=== PATIENT | male | born 1980 | race African-American/Black ===

== ENCOUNTER 2020-08-08 08:36 | Outpatient (REF) | payer BC, SELFPAY | END 2020-08-08 08:37 | disposition home or self-care (01) | LOC: HO.LAB 08:36 | PROVIDERS: Visit Provider Internal Medicine | DX: Z20.828 Contact with and (suspected) exposure to other viral communicable diseases (principal) | CPT/HCPCS: 87635 ==

== ENCOUNTER 2020-09-10 06:23 | Outpatient (REF) | payer BC, SELFPAY | END 2020-09-10 06:24 | disposition home or self-care (01) | LOC: HO.LAB 06:23 | PROVIDERS: Visit Provider Internal Medicine | DX: Z20.828 Contact with and (suspected) exposure to other viral communicable diseases (principal) | CPT/HCPCS: C9803; U0003 ==

== ENCOUNTER 2021-01-30 12:41 | Outpatient (REF) | payer OTHER, SELFPAY | END 2021-01-30 12:42 | disposition home or self-care (01) | LOC: HO.LAB 12:41 | PROVIDERS: Visit Provider Internal Medicine | DX: Z20.822 Contact with and (suspected) exposure to COVID-19 (principal) | CPT/HCPCS: C9803; U0003; U0005 ==

== ENCOUNTER 2021-02-01 12:04 | Emergency (ER) | payer OTHER, SELFPAY ==
--- NOTE | ~2021-02-01 | XR_ITS ---
EXAMINATION: XR CHEST CLINICAL INFORMATION: Cough COMPARISON: None TECHNIQUE: Frontal view of the chest was obtained. FINDINGS: Normal symmetric lung volumes. No parenchymal consolidation. No pleural effusion. No pneumothorax. Cardiomediastinal silhouette and pulmonary vascularity are within normal limits. No acute osseous abnormalities. XR/XR chest 1V IMPRESSION: Unremarkable examination.
[2021-02-01 12:33] VITALS: BP 150/80; PULSE 80; RESP 16; TEMP 36.8; O2SAT 95; BMI 44.7
[2021-02-01 15:01] LABS: Influenza A PCR NEGATIVE (Negative); Influenza B PCR NEGATIVE (Negative); Resp Syncy Virus RNA Qual PCR NEGATIVE (Negative); SARS COV2 PCR INHOUSE NEGATIVE (Negative)
--- NOTE | 2021-02-01 15:48 | ED_ITS ---
HPI - URI/Sore Throat General Chief Complaint: Upper Respiratory Symptoms Stated Complaint: cough Time Seen by Provider: 02/01/21 13:35 Source: patient Mode of arrival: ambulatory Limitations: no limitations History of Present Illness HPI Narrative: Dry cough for the past 1 week had a COVID test 2 days ago ensure the results he does not recall any obvious sick contacts, no recent illness. He states this feels similar to last year when he had pneumonia. He otherwise denies any shortness of breath no fever. MD elicited complaint: cough Onset (ago): day(s) Consistency: intermittent Severity: moderate Able to tolerate fluids by mouth: Yes Exacerbating factors: nothing Relieving factors: nothing Associated symptoms: denies other symptoms Treatments prior to arrival: none Related Data Previous Rx's Medication Instructions Recorded cyclobenzaprine 10 mg tablet 10 mg PO TID PRN #15 tab 11/26/20 naproxen 500 mg tablet 500 mg PO BID PRN #60 tab 11/26/20 acetaminophen-DM [Robitussin 20 ml PO Q4H PRN #237 ml 02/01/21 Cough-Sore Throat] albuterol sulfate 2 puff INHALATION Q4-6H PRN #8.5 g 02/01/21 azithromycin [Zithromax Z-Mayur] See Rx Instructions .ROUTE 02/01/21 .COMPLEX #6 tab Allergies Allergy/AdvReac Type Severity Reaction Status Date / Time No Known Allergies Allergy Verified 02/01/21 12:35 [No Known Allergies*] Review of Systems Review of Systems: Constitutional: No Weight loss, No Fever, No Chills, No Night Sweats, No Fatigue, No Malaise ENT/Mouth: No Hearing loss, No Ear Pain, No Nasal Congestion, No Sinus Pain, No Hoarseness, No sore throat, No Rhinorrhea, No Swallowing Difficulty Eyes: No Eye Pain, No Swelling, No Redness, No Foreign Body, No Discharge, No Vision Changes Cardiovascular: No Chest Pain, No SOB, No Dyspnea on Exertion, No Orthopnea, No Edema, No Palpitations Respiratory: + Cough, No Sputum, No Wheezing, No Smoke Exposure, No Dyspnea Gastrointestinal: No Nausea, No Vomiting, No Diarrhea, No Constipation, No abdominal Pain, No Hematochezia, No Melena Genitourinary:No Dysuria, No Urinary Frequency, No Hematuria, No Urinary Incontinence, No Urgency, No Flank Pain, No Urinary Flow Changes Musculoskeletal: No joint pain, No Myalgias, No Joint Swelling Skin: No Skin Lesions, No rash Neuro: No Weakness, No Numbness, No Paresthesias, No Loss of Consciousness, No Dizziness, No Headache Psych: No Social Issues Heme/Lymph: No Bruising, No Bleeding,No Lymphadenopathy Endocrine: No Polyuria, No Polydipsia, No Temperature Intolerance Yes all other systems are reviewed and are negative REPLACED BY [facility] Past Medical History Medical History 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 Hypertension Family History Family History (Updated 01/17/21 @ 15:51 by KARL King) Father Lung cancer Mother Diabetes Social History Social History Advance Directives: No Advance Directives Information Provided: Yes Physical Exam Vital Signs: Vital Signs: Last Vital Signs Temp 98.2 F 02/01/21 12:33 Pulse 80 02/01/21 12:33 Resp 16 02/01/21 12:33 BP 150/80 H 02/01/21 12:33 Pulse Ox 95 02/01/21 12:33 Body Mass Index 44.7 Reviewed Const: General: cooperative and healthy appearing; No acute distress or intoxicated appearing Nutritional Appearance: average body habitus Orientation/consciousness: patient oriented x3 HENMT: Head: Yes normal to inspection Ears: hearing grossly normal bilaterally Eyes: General: appearance normal, both eyes and all related structures Visual Smith: normal visual smith by confrontation Neck: Neck: Yes normal visual inspection, No positive Brudzinski's sign, No positive Kernig's sign and No tender Thyroid: Thyroid normal Chest: Chest palpation & inspection: normal inspection of the chest Resp: Effort & Inspection: normal respiratory effort Auscultation: clear to auscultation bilaterally Cardio: Jugular venous distension: no JVD Rhythm: regular rhythm Heart sounds: S1 normal heart sound present and S2 normal heart sound present GI: Inspection: Yes normal to inspection Palpation (GI): Soft to palpation Percussion: Yes normal to percussion Auscultation: normal bowel sounds : General: Yes no CVA tenderness Back/Spine/Pelvis: Back: no CVA tenderness Skin: General skin exam: no rashes or lesions noted Neuro: General: patient oriented x3 Extrem: General: Yes normal to inspection Course Reevaluation(s) Reevaluation #1: SARs negative/RSV/flu negative, chest x-ray unremarkable. Overall nontoxic appearing. No complaint of chest pain or shortness of breath here. He medically stable pulse ox 100% not tachycardic afebrile. Will discharge home with precaution return follow-up instructions. Feels comfortable plan. Stable for discharge. MDM - URI/Sore Throat Differential Diagnosis Differential diagnosis: Likely upper respiratory infection Medical Records Attestation: I reviewed the patient's medical records. Lab Data Attestation: I reviewed the patient's lab results. 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 FINDINGS: Normal symmetric lung volumes. No parenchymal consolidation. No pleural effusion. No pneumothorax. Cardiomediastinal silhouette and pulmonary vascularity are within normal limits. No acute osseous abnormalities. XR/XR chest 1V IMPRESSION: Unremarkable examination. Dictated By:PÉREZ CASTRO MDSigned By:<Electronically signed by PÉREZ CASTRO MD in OV>02/01/21 1528 DD/ 1335TD/TT: Buffing Turner And Counter: BRIGIDA Discharge Plan Discharge Clinical Impression: Bronchitis Patient Disposition: Home, Self-Care Instructions: Acute Bronchitis (ED) Additional Instructions: Both her COVID test were negative from 2 days ago and today Your chest x-ray did not show any evidence of pneumonia Will start you on inhaler for your cough Also start taking the antibiotic Start taking the cough medicine Push fluids Self-isolation/social distancing Full course of her medications prescribed Return if any concerns or worsening symptoms Otherwise the neck freely to follow-up with her primary care doctor in the next 1-2 weeks Thank you Prescriptions: New azithromycin [Zithromax Z-Mayur] 250 mg tablet See Rx Instructions .ROUTE .COMPLEX Qty: 6 RF: 0 albuterol sulfate 90 mcg/actuation HFA aerosol inhaler 2 puff inhalation Q4-6H PRN (Reason: shortness of breath or wheezing) Qty: 8.5 RF: 0 Robitussin Cough-Sore Throat 325-10 mg/10 mL liquid 20 ml PO Q4H PRN (Reason: cold symptoms) Qty: 237 RF: 0 No Action cyclobenzaprine 10 mg tablet 10 mg PO TID PRN (Reason: muscle spasm) Qty: 15 RF: 0 naproxen 500 mg tablet 500 mg PO BID PRN (Reason: pain) Qty: 60 RF: 0 Referrals: Per García, [employer] ESTATE MANAGEMENT SPECIALIST-[facility] [Primary Care Provider] - 1 week
== END 2021-02-01 16:13 | disposition home or self-care (01) ==
PROVIDERS: Emergency Provider Emergency Medicine; PCP Nurse Practitioner Family
DX: J20.9 Acute bronchitis, unspecified (principal); Z20.822 Contact with and (suspected) exposure to COVID-19; I10 Essential (primary) hypertension
CPT/HCPCS: 0241U; 36415; 71045; 99283

== ENCOUNTER 2021-04-16 05:38 | Emergency (ER) | payer OTHER, SELFPAY ==
--- NOTE | ~2021-04-16 | XR_ITS ---
EXAMINATION: XR CHEST CLINICAL INFORMATION: Cough COMPARISON: 02/01/2021 TECHNIQUE: Frontal view of the chest was obtained. FINDINGS: The lungs are well expanded. There is no focal consolidation, edema, or effusion. No pneumothorax. The cardiomediastinal silhouette is within normal limits. No acute osseous abnormality. XR/XR chest 1V IMPRESSION: Clear lungs.
[2021-04-16 05:50] VITALS: BP 172/89; PULSE 71; RESP 20; TEMP 36.8; O2SAT 95; BMI 44.0
[2021-04-16 06:21] LABS: COVID-19 Test Negative (Negative); IDNOW Serial# 9DD0AD1C
[2021-04-16 06:29] VITALS: BP 169/91; PULSE 69; RESP 24; TEMP 36.7; O2SAT 94
--- NOTE | 2021-04-16 06:47 | ED.URI ---
HPI - URI/Sore Throat General Chief Complaint: Upper Respiratory Symptoms Stated Complaint: Cold symptoms Time Seen by Provider: 04/16/21 06:47 Source: patient Mode of arrival: ambulatory Limitations: no limitations History of Present Illness HPI Narrative: one week of cough and chills. Patient has not been vaccinated. MD elicited complaint: cough Pertinent past history: asthma Onset (ago): week(s) Consistency: intermittent Severity: mild Description of mucous: clear Able to tolerate fluids by mouth: Yes Exacerbating factors: nothing Associated symptoms: chills Related Data Previous Rx's Medication Instructions Recorded cyclobenzaprine 10 mg tablet 10 mg PO TID PRN #15 tab 11/26/20 naproxen 500 mg tablet 500 mg PO BID PRN #60 tab 11/26/20 acetaminophen-DM [Robitussin 20 ml PO Q4H PRN #237 ml 02/01/21 Cough-Sore Throat] albuterol sulfate 2 puff INHALATION Q4-6H PRN #8.5 g 02/01/21 azithromycin [Zithromax Z-Mayur] See Rx Instructions .ROUTE 02/01/21 .COMPLEX #6 tab albuterol sulfate 2 puff INHALATION Q4-6H PRN #8.5 g 04/16/21 prednisone 60 mg PO DAILY #12 tab 04/16/21 Allergies Allergy/AdvReac Type Severity Reaction Status Date / Time No Known Allergies Allergy Verified 02/01/21 12:35 [No Known Allergies*] Review of Systems Constitutional: Constitutional: Reports no additional constitutional complaints Eyes: Eyes: Reports no additional eye complaints ENT: Denies dizziness Cardiovascular: Cardiovascular: Reports no additional cardiovascular complaints Respiratory: Respiratory: Reports as per HPI Gastrointestinal: Gastrointestinal: Reports no additional gastrointestinal complaints Musculoskeletal: Musculoskeletal: Reports no additional musculoskeletal complaints Integumentary/Breasts: Skin/Breast: Denies rash Neurologic: Reports system reviewed and no additional complaints, except as documented, Denies dizziness and Denies Sensory deficit (Neuro) Psychiatric: Psychiatric: Denies anxiety [facility] Past Medical History Medical History 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 Hypertension Family History Family History Father Lung cancer Mother Diabetes Social History Social History Alcohol intake: current Alcohol intake frequency: holidays/special occasions only Patient Tobacco Use Status: Never used Tobacco Use of substances other than those prescribed or required for medical reasons: No Advance Directives: No Physical Exam Vital Signs: Vital Signs: Last Vital Signs Temp 98.0 F 04/16/21 06:29 Pulse 75 04/16/21 07:18 Resp 20 04/16/21 07:14 BP 146/80 H 04/16/21 07:14 Pulse Ox 96 04/16/21 07:14 Body Mass Index 44.0 Const: Other: resting comfortably Nutritional Appearance: obese Orientation/consciousness: oriented to person and patient oriented x3 Limitations: no limitations HENMT: Head: Yes normal to inspection Ears: external ears normal General nose exam: Normal external nose present Mouth: Normal oral and palatal mucosa present and oropharynx normal Throat: Yes posterior oropharynx normal Eyes: General: appearance normal, both eyes and all related structures Neck: Other: supple Neck: Yes normal visual inspection Chest: Chest palpation & inspection: normal inspection of the chest Resp: Other: slight wheeze Cardio: Jugular venous distension: no JVD Rate: regular rate Rhythm: regular rhythm Heart sounds: S1 normal heart sound present and S2 normal heart sound present GI: Inspection: Yes normal to inspection Palpation (GI): Soft to palpation, nontender and No hepatosplenomegaly present Auscultation: normal bowel sounds : General: Yes no CVA tenderness Back/Spine/Pelvis: Back: no CVA tenderness Skin: General skin exam: no rashes or lesions noted Neuro: General: oriented to person and patient oriented x3 Cranial nerves: Yes CN's II-XII intact bilaterally Motor exam (neuro): 5/5 motor strength present throughout Sensory Exam: No Sensory deficit (Neuro) Extrem: General: Yes normal to inspection Psych: Appearance: grossly normal Course Course Course Narrative: patient COVID negative, xray normal with stable vitals. Patient with slight wheeze which will be treated with a pump and prednisone. I am still concerned about covid despite negative test. MDM - URI/Sore Throat Lab Data Labs: Lab Results 04/16/21 Range/Units 05:59 COVID-19 (DOMINIC) Negative (Negative) COVID-19 Clin Com See Note Discharge Plan Discharge Clinical Impression: COVID Upper respiratory infection Qualifiers: URI type: unspecified viral URI Qualified Code(s): J06.9 - Acute upper respiratory infection, unspecified Patient Disposition: Home, Self-Care Instructions: COVID-19 (Coronavirus Disease 2019) (ED), Upper Respiratory Infection (ED) Additional Instructions: you must assume you might have COVID, stay out of work for 10 days. you must get vaccinated Prescriptions: New albuterol sulfate 90 mcg/actuation HFA aerosol inhaler 2 puff inhalation Q4-6H PRN (Reason: shortness of breath or wheezing) Qty: 8.5 RF: 0 prednisone 20 mg tablet 60 mg PO DAILY Qty: 12 RF: 0 No Action azithromycin [Zithromax Z-Mayur] 250 mg tablet See Rx Instructions .ROUTE .COMPLEX Qty: 6 RF: 0 albuterol sulfate 90 mcg/actuation HFA aerosol inhaler 2 puff inhalation Q4-6H PRN (Reason: shortness of breath or wheezing) Qty: 8.5 RF: 0 Robitussin Cough-Sore Throat 325-10 mg/10 mL liquid 20 ml PO Q4H PRN (Reason: cold symptoms) Qty: 237 RF: 0 cyclobenzaprine 10 mg tablet 10 mg PO TID PRN (Reason: muscle spasm) Qty: 15 RF: 0 naproxen 500 mg tablet 500 mg PO BID PRN (Reason: pain) Qty: 60 RF: 0 Referrals: Physician,Unknown [Primary Care Provider] - 3 days
[2021-04-16 06:50] VITALS: BP 185/103; PULSE 71; RESP 20
[2021-04-16] MEDS: predniSONE 20 MG TABLET 60 MG PO (07:12)
[2021-04-16 07:14] VITALS: BP 146/80; PULSE 64; RESP 20; O2SAT 96
[2021-04-16] MEDS: Albuterol Sulfate 90 MCG 8 GM INHALER 4 PUFF INHALE (07:14)
[2021-04-16 07:18] VITALS: PULSE 75; O2SAT 98
== END 2021-04-16 07:54 | disposition home or self-care (01) ==
PROVIDERS: Emergency Provider Emergency Medicine
DX: U07.1 COVID-19 (principal); J06.9 Acute upper respiratory infection, unspecified; I10 Essential (primary) hypertension; Z79.899 Other long term (current) drug therapy
CPT/HCPCS: 36415; 71045; 87635; 94640; 99284

== ENCOUNTER 2021-07-17 10:29 | Outpatient (REF) | payer BC, SELFPAY ==
[2021-07-17 11:41] LABS: Estimated Average Glucose 134 mg/dL; Hemoglobin A1c % 6.3 %
[2021-07-17 12:03] LABS: TSH reflex Free T4 0.75 uIU/mL (0.32-4.0)
[2021-07-17 12:17] LABS: Alanine Aminotransferase 50 U/L (0-40); Albumin Level 4.5 g/dL (3.5-5.0); Alkaline Phosphatase 44 U/L (39-117); Anion Gap 14 (12-20); Aspartate Amino Transferase 49 U/L (5-37); Bilirubin Total 0.6 mg/dL (0.0-1.0); Blood Urea Nitrogen 15 mg/dL (9-16); Calcium 9.6 mg/dL (8.4-10.2); Carbon Dioxide 22 mmol/L (22-29); Chloride 106 mmol/L (96-108); Cholesterol 189 mg/dL; Estimated Glomerular Filt Rate > 60; Glucose Fasting 127 mg/dL (60-99); HDL Cholesterol 39 mg/dL; LDL Cholesterol Calculated 131 mg/dl; Potassium 4.4 mmol/L (3.3-5.1); Sodium 138 mmol/L (135-145); Total Protein 7.9 g/dL (6.5-8.0); Triglycerides 97 mg/dL
[2021-07-17 14:20] LABS: Appearance Urine TURBID; Color Urine YELLOW; Glucose Urine UA NEG (NEG); Leukocyte Esterase Urine NEG (NEG); Nitrite Urine POS (NEG); Specific Gravity - Urine >= 1.030 (1.005-1.025); UACC Culture Trigger YES; Urine Blood TRACE (NEG); Urine Ketones 5 MG/DL (NEG); Urine Protein 1+ MG/DL (NEG-TRACE)
[2021-07-17 15:15] LABS: Amorphous Sediment Urine 3+ /LPF; Bacteria Urine TRACE /LPF; Mucus Urine TRACE /LPF; RBC Urine 0-2 /HPF (0); Squamous Epithelial Cell Urine TRACE /LPF; WBC Urine 0 /HPF (0-4)
== END 2021-07-17 10:30 | disposition home or self-care (01) ==
LOC: HO.HMGCLDS 10:29
PROVIDERS: PCP Nurse Practitioner Family; Visit Provider Nurse Practitioner Family
DX: I10 Essential (primary) hypertension (principal); R73.01 Impaired fasting glucose
CPT/HCPCS: 36415; 80053; 80061; 81001; 81003; 83036; 84443; 87086

== ENCOUNTER 2021-07-22 14:00 | Outpatient (REF) | payer BC, SELFPAY ==
--- NOTE | ~2021-07-22 | US_ITS ---
EXAMINATION: US ABDOMEN COMPLETE CLINICAL INFORMATION: Abnormal levels of other serum enzymes. COMPARISON: CT abdomen and pelvis 07/22/2015. TECHNIQUE: Real-time imaging of the abdominal viscera. FINDINGS: PANCREAS: Normal. ABDOMINAL AORTA: The mid and distal segments are normal in caliber. The upper abdominal aorta is not well visualized due to bowel gas. INFERIOR VENA CAVA: Visualized portions are normal. LIVER: The liver is normal in size. The liver contour is normal. Liver echotexture is increased. No focal hepatic lesion. There is no intrahepatic biliary duct dilatation seen. GALLBLADDER: Normal. The gallbladder is physiologically distended without evidence of stones, sludge, polyps, wall thickening or pericholecystic fluid. COMMON BILE DUCT: Normal in caliber measuring 0.4 cm in diameter. RIGHT KIDNEY: There is a 3.6 x 2.5 x 2.6 cm cyst in the upper pole No hydronephrosis or renal calculi. The kidney measures 10.4 cm in maximum dimension. LEFT KIDNEY: Normal. No hydronephrosis. No renal calculi or focal parenchymal lesions. The kidney measures 11.0 cm in maximum dimension. SPLEEN: Normal. The spleen measures 10.1 cm in maximum dimension. FREE FLUID: None. US/US abdomen complete IMPRESSION: Echogenic liver probably representing fatty infiltration. Right renal cyst. Limited visualization of the upper abdominal aorta.
== END 2021-07-22 14:01 | disposition home or self-care (01) ==
LOC: HO.HMGCX 14:00
PROVIDERS: PCP Nurse Practitioner Family; Visit Provider Nurse Practitioner Family
DX: R74.8 Abnormal levels of other serum enzymes (principal)
CPT/HCPCS: 76700

== ENCOUNTER 2023-09-24 07:47 | Outpatient (REF) | payer BC, SELFPAY ==
[2023-09-24 11:20] LABS: Appearance Urine Clear; Color Urine Yellow; Glucose Urine UA Negative (Negative); Leukocyte Esterase Urine Negative (Negative); Nitrite Urine Negative (Negative); PH 7.5 (5.0-9.0); Urine Blood Negative (Negative); Urine Ketones Negative (Negative); Urine Protein Negative (Neg-Trace)
[2023-09-24 11:23] LABS: MANUAL DIFF FLAG NO
[2023-09-24 11:32] LABS: Basophils Absolute Auto 0.1 X10*3/uL (0.0-0.2); Basophils Percent Auto 0.8 % (0-2); Eosinophils Absolute Auto 0.1 X10*3/uL (0.0-0.4); Eosinophils Percent Auto 1.7 % (0-4); Hematocrit 46.6 % (42.0-52.0); Hemoglobin 15.2 g/dl (14.0-18.0); Imm Gran Abs Auto 0.01 X10*3/uL (0.00-0.03); Imm Gran Pct Auto 0.2 % (0.0-0.4); Lymphocytes Absolute Auto 1.8 X10*3/uL (1.2-4.9); Lymphocytes Percent Auto 30.8 % (20-40); Mean Corpuscular HGB Conc 32.6 g/dl (31.0-36.0); Mean Corpuscular Hemoglobin 28.5 pg (27.0-33.0); Mean Corpuscular Volume 87.4 fL (80.0-98.0); Mean Platelet Volume 9.4 fL (9.4-12.4); Monocytes Absolute Auto 0.6 X10*3/uL (0.1-1.2); Monocytes Percent Auto 9.6 % (2-11); Neutrophils Absolute Auto 3.4 x10*3/uL (2.0-8.3); Neutrophils Percent Auto 56.9 % (45-73); Platelet Count 247 X10*3/uL (160-400); Red Blood Count 5.33 X10*6/uL (4.60-5.80); Red Cell Distribution Width 12.6 % (11.0-16.0); White Blood Count 5.9 X10*3/uL (4.8-10.8)
[2023-09-24 11:44] LABS: B Type Natriuretic Peptide < 10 pg/mL (<100)
[2023-09-24 12:02] LABS: Alanine Aminotransferase 35 U/L (0-40); Albumin Level 4.2 g/dL (3.5-5.0); Alkaline Phosphatase 36 U/L (39-117); Anion Gap 12 (12-20); Aspartate Amino Transferase 33 U/L (5-37); Bilirubin Total 0.7 mg/dL (0.0-1.0); Blood Urea Nitrogen 14 mg/dL (9-16); Calcium 9.4 mg/dL (8.4-10.2); Carbon Dioxide 28 mmol/L (22-29); Chloride 103 mmol/L (96-108); Cholesterol 200 mg/dL (<200); Estimated Glomerular Filt Rate > 60; Glucose Fasting 146 mg/dL (60-99); HDL Cholesterol 46 mg/dL (>40); LDL Cholesterol Calculated 131 mg/dL (<100); Potassium 4.4 mmol/L (3.3-5.1); Sodium 139 mmol/L (135-145); Total Protein 7.5 g/dL (6.5-8.0); Triglycerides 117 mg/dL (<150)
[2023-09-24 12:21] LABS: TSH reflex Free T4 1.26 uIU/mL (0.32-4.0)
== END 2023-09-24 07:48 | disposition home or self-care (01) ==
LOC: HO.HMGCLDS 07:47
PROVIDERS: PCP Nurse Practitioner Family; Visit Provider Nurse Practitioner Family
DX: Z00.00 Encounter for general adult medical examination without abnormal findings (principal); R60.9 Edema, unspecified; I10 Essential (primary) hypertension
CPT/HCPCS: 36415; 80053; 80061; 81003; 83880; 84443; 85025

== ENCOUNTER 2023-11-30 13:58 | Outpatient (AMB) | payer BC, SELFPAY ==
[2023-11-30 14:30] VITALS: BP 126/76; PULSE 72; TEMP 36.8; O2SAT 96; BMI 46.9
--- NOTE | 2023-11-30 14:30 | MHC.OFFWIV ---
Intake Vital Signs 11/30/23 14:30 Height 6 ft Weight 346 lb BMI 46.9 BP 126/76 Blood Pressure Location Lt brachial Position Sitting Pulse 72 Pulse Source Pulse Oximeter Temp 98.2 F Temp Source Oral Pulse Oximetry (%) 96 Oxygen Delivery Method Room Air Intake Visit Reasons: EP Right lower abdomen pain & tenderness Intake Note: Pt is here today c/o Rt lower abdomen discomfort and tenderness Patient Tobacco Use Status: Never used Tobacco Allergies No Known Allergies [No Known Allergies*] Allergy (Verified 11/30/23 14:33) HPI HPI Comments History of Present Illness Details Patient is a 43-year-old male in today for sick visit. The patient states that over the past several months he has had intermittent incidences of right-sided abdominal pain. The patient states that he 1st noticed the pain after standing up on a long flight, he states the pain took several hours to subside. This happened 4 months prior to this appointment. 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 He denies fevers, nausea, vomiting, urinary frequency, constipation, chest pain, shortness a breath, dizziness. Has not tried any medication for relief. He has a past medical history significant for type 2 diabetes, hypertension, obesity, PFSH Medical History Hypertension 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 Family History Father Lung cancer Mother Diabetes Substance use disorder Social History Alcohol intake: current Alcohol intake frequency: holidays/special occasions only Patient Tobacco Use Status: Never used Tobacco e-Cigarette/Vaping Use: Currently Using Second Hand Smoke Exposure: No Cognitive needs: No Hearing needs: No Vision needs: No Review of Systems Const Details: Constitutional : No Weight loss, No Fever, No Chills, No Fatigue, No Malaise Cardiovascular : No Chest Pain, No SOB, No Dyspnea on Exertion, No Orthopnea, No Edema, No Palpitations Respiratory : No Cough, No Sputum, No Wheezing Gastrointestinal : No Nausea, No Vomiting, No Diarrhea, No Constipation, Admits abdominal Pain, No Hematochezia, No Melena Genitourinary : No Dysuria, No Urinary Frequency, No Hematuria, Musculoskeletal : No joint pain, No Myalgias, No Joint Swelling Skin : No Skin Lesions, No rash Neuro : No Weakness, No Numbness, No Dizziness, No Headache Psych : No Anxiety/Panic, No Depression Heme/Lymph: No Bruising, No Bleeding,No Lymphadenopathy Endocrine : No Polyuria, No Polydipsia All other systems reviewed and are negative Physical Exam Vital Signs: Last Vital Signs Pulse 72 11/30/23 14:30 BP 126/76 11/30/23 14:30 Pulse Ox 96 11/30/23 14:30 Oxygen Delivery Method Room Air 11/30/23 14:30 BMI result Body Mass Index 46.9 Const General: cooperative, no acute distress and alert Nutritional Appearance: obese Orientation/consciousness: patient oriented x3 Limitations: no limitations Resp Auscultation: clear to auscultation bilaterally Cardio Rate: regular rate Rhythm: regular rhythm Heart sounds: S1 normal heart sound present and S2 normal heart sound present GI Inspection: Yes obesity Palpation (GI): Tenderness to palpation present (GI) in the epigastrum, in the RUQ and periumbilically Percussion: Yes normal to percussion Auscultation: normal bowel sounds Rectal Exam - Male: Yes deferred General: Yes CVA tenderness (Right-sided) Back/Spine/Pelvis Back: CVA tenderness (Right-sided) Neuro General: patient oriented x3 Assessment & Plan Assessment & Plan (1) Abdominal pain: Comment: Patient has right upper quadrant and umbilical pain on palpation. Patient had ultrasound ordered to rule out hernia. Will order labs which will include CMP, CBC, ESR, lipase, amylase. Patient has been instructed to use simethicone as he admits to lots of gas and poor diet. Patient has appointment with PCP in 1 day. Code(s): R10.9 - Unspecified abdominal pain Qualifiers: Abdominal location: right upper quadrant Qualified Code(s): R10.11 - Right upper quadrant pain Plan: The patient has been instructed on signs of worsening symptoms and when to report back to the walk-in clinic or when to present to the ED. the patient states that he understood the plan. Plan patient has appointment with pcp on 12/01/23 Orders: Orders Lipase Today R10.9 - Unspecified abdominal pain Amylase Today R10.9 - Unspecified abdominal pain UA CC w/rflx Micro + Cult Today R10.9 - Unspecified abdominal pain Erythrocyte Sedimentation Rate Today R10.9 - Unspecified abdominal pain Complete Blood Count Auto Diff Today R10.9 - Unspecified abdominal pain Comprehensive Met. Panel Today Z91.89 - Other specified personal risk factors, not elsewhere classified US pelvic limited Today R10.9 - Unspecified abdominal pain Coding Level of Care Code Est Pt Level 3 (89469) Diagnoses Right upper quadrant abdominal pain R10.11 Abdominal location: right upper quadrant Time Spent (min) 28
== END 2023-11-30 15:41 | disposition home or self-care (01) ==
PROVIDERS: PCP Nurse Practitioner Family; Visit Provider Nurse Practitioner Primary Care
DX: R10.11 Right upper quadrant pain (principal)
CPT/HCPCS: 99213

== ENCOUNTER 2023-11-30 14:59 | Outpatient (REF) | payer BC, SELFPAY ==
--- NOTE | ~2023-11-30 | US_ITS ---
EXAMINATION: US PELVIC/RIGHT LOWER ABDOMEN, LIMITED/FOLLOW UP CLINICAL INFORMATION: Right lower quadrant pain. COMPARISON: None available. TECHNIQUE: Targeted ultrasound images were obtained by the male impersonator of the area of concern as indicated by the patient in the right lower quadrant. Radiologist was not in attendance. Images were later provided for interpretation. FINDINGS: No discrete hernia or fluid collection identified in the area of concern indicated by the patient to the male impersonator in the right lower quadrant. Limited visualization due to bowel gas. US/US pelvic limited IMPRESSION: No discrete hernia or fluid collection identified in the area of concern indicated by the patient to the male impersonator in the right lower quadrant. Limited visualization due to bowel gas. CT scan could be considered for further evaluation.
[2023-11-30 16:15] LABS: MANUAL DIFF FLAG NO
[2023-11-30 16:20] LABS: Basophils Absolute Auto 0.1 X10*3/uL (0.0-0.2); Basophils Percent Auto 0.7 % (0-2); Eosinophils Absolute Auto 0.1 X10*3/uL (0.0-0.4); Eosinophils Percent Auto 1.3 % (0-4); Hematocrit 45.3 % (42.0-52.0); Imm Gran Abs Auto 0.01 X10*3/uL (0.00-0.03); Imm Gran Pct Auto 0.1 % (0.0-0.4); Lymphocytes Absolute Auto 2.4 X10*3/uL (1.2-4.9); Lymphocytes Percent Auto 32.6 % (20-40); Mean Corpuscular HGB Conc 33.1 g/dl (31.0-36.0); Mean Corpuscular Hemoglobin 28.8 pg (27.0-33.0); Mean Corpuscular Volume 86.9 fL (80.0-98.0); Monocytes Absolute Auto 0.5 X10*3/uL (0.1-1.2); Monocytes Percent Auto 6.9 % (2-11); Neutrophils Absolute Auto 4.2 x10*3/uL (2.0-8.3); Neutrophils Percent Auto 58.4 % (45-73); Platelet Count 263 X10*3/uL (160-400); Red Blood Count 5.21 X10*6/uL (4.60-5.80); Red Cell Distribution Width 12.8 % (11.0-16.0); White Blood Count 7.2 X10*3/uL (4.8-10.8)
[2023-11-30 16:21] LABS: Appearance Urine Clear; Color Urine Yellow; Glucose Urine UA Negative (Negative); Leukocyte Esterase Urine Small (1+) (Negative); Nitrite Urine Negative (Negative); Specific Gravity - Urine 1.025 (1.005-1.025); UMIC TRIGGER UACC YES; Urine Blood Negative (Negative); Urine Ketones Negative (Negative); Urine Protein Negative (Neg-Trace)
[2023-11-30 16:24] LABS: Bacteria Urine None Seen (None Seen); Hyaline Casts Urine 0-2 /LPF (0-2); RBC Urine 0-2 /HPF (0-2); Squamous Epithelial Cell Urine 0-2 /HPF (0-2); UACC Culture Trigger YES; WBC Urine 21-50 /HPF (0-5)
[2023-11-30 16:54] LABS: Alanine Aminotransferase 24 U/L (0-40); Albumin Level 4.3 g/dL (3.5-5.0); Alkaline Phosphatase 36 U/L (39-117); Anion Gap 14 (12-20); Aspartate Amino Transferase 24 U/L (5-37); Bilirubin Total 0.5 mg/dL (0.0-1.0); Blood Urea Nitrogen 12 mg/dL (9-16); Calcium 9.7 mg/dL (8.4-10.2); Carbon Dioxide 28 mmol/L (22-29); Chloride 104 mmol/L (96-108); Estimated Glomerular Filt Rate > 60; Glucose Random 122 mg/dL (60-115); Lipase 45 U/L (8-78); Potassium 4.3 mmol/L (3.3-5.1); Sodium 142 mmol/L (135-145); Total Protein 7.6 g/dL (6.5-8.0)
[2023-11-30 16:58] LABS: Erythrocyte Sedimentation Rate 8 MM/HR (0-15)
[2023-11-30 17:07] LABS: Amylase 74 U/L (28-100)
== END 2023-11-30 15:00 | disposition home or self-care (01) ==
LOC: HO.HMGCX 14:59
PROVIDERS: PCP Nurse Practitioner Family; Visit Provider Nurse Practitioner Primary Care
DX: K46.9 Unspecified abdominal hernia without obstruction or gangrene (principal); R10.9 Unspecified abdominal pain; Z91.89 Other specified personal risk factors, not elsewhere classified
CPT/HCPCS: 36415; 76857; 80053; 81001; 82150; 83690; 85025; 85652; 87086; 87088

== ENCOUNTER 2023-12-01 09:50 | Outpatient (AMB) | payer BC, SELFPAY ==
[2023-12-01 09:57] VITALS: BP 132/80; PULSE 78; O2SAT 98; BMI 45.8
--- NOTE | 2023-12-01 09:57 | A.OFFPC_ITS ---
Vital Signs 12/01/23 09:57 Height 6 ft Weight 338 lb BMI 45.8 BP 132/80 Blood Pressure Location Lt brachial Position Sitting Pulse 78 Pulse Source Pulse Oximeter Pulse Oximetry (%) 98 Oxygen Delivery Method Room Air Intake Visit Reasons: 4M Follow up, rescheduled from 08/16 Intake Note: pt is here for 4 month follow up Senior Interactive Producer Required: No Accompanied by: Self / Same As Patient Allergies No Known Allergies [No Known Allergies*] Allergy (Verified 12/01/23 09:58) Medication List - Last Reconciled 12/01/23 by JACQUELINE Hoyt- atorvastatin 10 mg PO BEDTIME irbesartan 75 mg PO DAILY Tobacco use date assessed: 12/01/23 Dental Screening Dental Screen Date: 12/01/23 Did you have a dental visit in the last 12 months?: Yes Did you have a dental problem in the last 6 months where you did not have access to dental care?: No Was dental information given to patient?: Patient has dentist HPI 4M Follow up, rescheduled from 08/16 HPI Details Pt is a diabetic. A1C in office today is 6.7. Due for microalbumin, will order. Denies polyuria, polydipsia, and neuropathy. Pt denies any signs and symptoms of hypoglycemia and does know how to correct it. Pt does not check his blood sugar, reenforced importance of this. Will start ozempic 0.25mg. Pt reports stopping all of his medications. Will restart irbesartan 75mg and atorvastatin 10mg. Educated pt on the importance of these medications. Pt c/o pain that starts in his right flank and radiates to his right abdomen. He reports that this can be either sharp or dull. He reports some bulging of his right lateral mid abdomen, no active bulging on exam. Pt does not have a hx of kidney stones. He had an US yesterday which has not resulted yet, though pt states he was told there was no concerning findings at that time, still awaiting offical report. UA was done yesterday which showed leukocytes and WBCs. Will order CT and urine culture. Pt knows to go to the ER with any worsening symptoms. Denies fever, chills, hematuria, pain with moving bowels or urinating, and N/V/D. Pt would not like a pneumonia vaccine currently. 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 1. Little interest or pleasure in doing things: not at all 2. Feeling down, depressed, or hopeless: not at all 3. Trouble falling or staying asleep, or sleeping too much: not at all 4. Feeling tired or having little energy: not at all 5. Poor appetite or overeating: not at all 6. Feeling bad about yourself - or that you are a failure or have let yourself or your family down: not at all 7. Trouble concentrating on things, such as reading the newspaper or watching television: not at all 8. Moving or speaking so slowly that other people could have noticed. Or the opposite - being so fidgety or restless that you have been moving around a lot more than usual: not at all 9. Thoughts that you would be better off or of hurting yourself in some way: not at all Total score: 0 Depression Screening Interpretation: Negative Depression Screening Done: Yes Source: Developed by Drs. Jevon Jamison, Sri Guerrier, Eleuterio Sullivan and colleagues, with an educational eleanor from [employer]. Thrive Questionnaire Date Thrive assessed: 12/01/23 I am a: Patient What is your living situation today?: I have a steady place to live Within the past 12 months, did the food you bought not last and you didn't have the money to get more?: Never true Within the past 12 months, did you worry whether your food would run out before you got money to buy more?: Never true Do you have trouble paying for medicines?: Yes Do you have trouble getting transportation to medical appointments?: No Do you have trouble paying your heating and electricity bill?: No Do you have trouble taking care of your child, family member or friend?: No Do you have trouble with day-to-day activities such as bathing, preparing meals, shopping, managing finances, etc.?: No Are you currently unemployed and looking for a job?: No Are you interested in more education?: Yes Please select the resources that you would like help with: None Currently or been in a relationship where the following occur: no concerns reported THRIVE Score: 0 AUDIT C Alcohol Use Questionnaire (AUDIT-C) 1. How often do you have a drink containing alcohol?: 2-4 times a month 2. How many drinks containing alcohol do you have on a typical day when you are drinking?: 3 or 4 3. How often do you have six or more drinks on one occasion?: Never Total Score: 3 Score Reviewed/Action Taken: Yes BRODERICK-7 AMB Questionnaire BRODERICK-7 Date BRODERICK - 7 assessed: 12/01/23 Feeling nervous, anxious, or on edge: 1 = Several days Not being able to stop or control worryin = Several days Worrying too much about different things: 1 = Several days Trouble relaxin = Several days Being so restless that it is hard to sit still: 1 = Several days Becoming easily annoyed or irritable: 0 = Not at all Feeling afraid as if something awful might happen: 0 = Not at all Total BRODERICK-7 score (0-4 normal; 5-9 mild; 10-14 moderate; 15-21 severe): 5 Source: Developed by Drs. Jevon Jamison, Sri Guerrier, Eleuterio Sullivan and colleagues, with an educational eleanor from [employer]. BRODERICK-7 Assessment Billing BRODERICK-7 Assessment Tool: BRODERICK-7 Assessment 02781 Review of Systems Const Reports as per HPI Physical exam (Primary Care) Vital Signs: Last Vital Signs Pulse 78 12/01/23 09:57 BP 132/80 12/01/23 09:57 Pulse Ox 98 12/01/23 09:57 Oxygen Delivery Method Room Air 12/01/23 09:57 BMI result Body Mass Index 45.8 Tobacco/Smoking Status: Tobacco use Status Tobacco use date assessed 12/01/23 12/01/23 10:02 Patient Tobacco Use Status Never used Tobacco 12/01/23 10:02 e-Cigarette/Vaping Use Currently Using 12/01/23 10:02 PHQ-9: PHQ-9 Score PHQ-9: Total score 0 12/01/23 11:04 Depression Screening Interpretation: Negative Thrive Assessment: Date of Thrive Assessment Date Thrive assessed 12/01/23 12/01/23 10:12 Currently or been in a relationship where the following occur: no concerns reported Const General: cooperative Nutritional Appearance: obese morbidly obese Orientation/consciousness: patient oriented x3 Resp Effort & Inspection: normal respiratory effort Auscultation: clear to auscultation bilaterally Cardio Rate: regular rate Rhythm: regular rhythm Heart sounds: S1 normal heart sound present and S2 normal heart sound present GI Other: with palpation of right lateral mid abdomen tenderness noted, no active bulging of abdomen General: Yes no CVA tenderness Back/Spine/Pelvis Back: no CVA tenderness Neuro General: patient oriented x3 Extrem Other: bilat feet: + sensation with use of monofilament, feet intact with no ulcerations or lesions Psych Appearance: grossly normal Mental Status: mental status grossly normal Speech and movement: Normal speech and movement present Affect: normal affect Attitude: cooperative Thought process: Normal thought process present Thought content: Normal thought content present Insight: Good insight present (Psych) Judgement: Good judgement present (Psych) Results AMB Hemoglobin A1c AMB Hemoglobin A1c 6.7 % Last Edit by Moises Ray CMA on 12/01/23 10: 32 Results Reviewed Results Reviewed: Laboratory Last Values Hgb A1c (Clinic) 6.7 % (4.0-6.0) H 12/01/23 10:32 Assessment and Plan Assessment & Plan (1) Diabetes: Code(s): E11.9 - Type 2 diabetes mellitus without complications Plan: Labs ordered, encouraged checking his sugars more often, reinforced importance of tight control (2) Flank pain: Code(s): R10.9 - Unspecified abdominal pain Plan: ct scan and urine culture ordered (3) Abdominal pain: Comment: CT scan ordered Code(s): R10.9 - Unspecified abdominal pain Qualifiers: Abdominal location: right upper quadrant Qualified Code(s): R10.11 - Right upper quadrant pain Plan: CT and culture ordered Plan The patient agreed to the use of a medical facilities section director for this encounter. Scribed for JORGE L Martinez by Mandi Andrade medical facilities section director, on 12/01/2023 at 10:15 EST. Orders: Orders Microalbumin, Random (w Creat) Today E11.9 - Type [address] abdomen pelvis wo IV con Today R10.9 - Unspecified abdominal pain Urine Culture Today R10.9 - Unspecified abdominal pain AMB Hemoglobin A1c Today Z13.9 - Encounter for screening, unspecified Referrals Ophthalmology Referral E11.9 - Type 2 diabetes mellitus without complications Medications: New irbesartan 75 mg PO DAILY 90 tabs 2RF semaglutide (Ozempic) for 4 weeks 0.25 mg (0.368 mL) subcut QWEEK 3 mL 2RF atorvastatin 10 mg PO BEDTIME 90 tabs 2RF Coding Level of Care Code Est Pt Level 3 (66566) Diagnoses Diabetes E11.9 Flank pain R10.9 Right upper quadrant abdominal pain R10.11 Abdominal location: right upper quadrant Additional Codes BRODERICK-7 Assessment Billing - BRODERICK-7 Assessment Tool: BRODERICK-7 Assessment 03899 ([id number])
== END 2023-12-01 10:41 | disposition home or self-care (01) ==
PROVIDERS: PCP Nurse Practitioner Family; Visit Provider Nurse Practitioner Family
DX: E11.9 Type 2 diabetes mellitus without complications (principal); R10.9 Unspecified abdominal pain; R10.11 Right upper quadrant pain
CPT/HCPCS: 83036; 99213

== ENCOUNTER 2023-12-01 10:42 | Outpatient (REF) | payer BC, SELFPAY ==
[2023-12-01 14:15] LABS: Creatinine Urine 126.36 mg/dL; Microalbum/Creatinine Ratio Ur 10.2 ug/mg cr (<30)
== END 2023-12-01 10:43 | disposition home or self-care (01) ==
LOC: HO.HMGCLDS 10:42
PROVIDERS: PCP Nurse Practitioner Family; Visit Provider Nurse Practitioner Family
DX: R10.9 Unspecified abdominal pain (principal); E11.9 Type 2 diabetes mellitus without complications
CPT/HCPCS: 82043; 82570; 87086

== ENCOUNTER 2023-12-08 10:12 | Outpatient (REF) | payer BC, SELFPAY ==
--- NOTE | ~2023-12-08 | CT_ITS ---
EXAMINATION: CT ABDOMEN AND PELVIS WITHOUT CONTRAST CLINICAL INFORMATION: ? Kidney stone versus hernia COMPARISON: US abdomen pelvis from 11/30/2023, ultrasound abdomen from 07/22/2021, CT abdomen pelvis from 07/22/2015 TECHNIQUE: Multidetector volumetric imaging was performed from the superior aspect of the liver through the pubic symphysis. Sagittal and coronal reformatted images were obtained on the technologist's workstation. This CT examination was performed using dose optimization techniques as appropriate, variously including the following: *Automated exposure control *Adjustment of mA and/or kV according to patient size (this includes techniques or standardized protocols for targeted exams where dose is matched to indication/reason for exam; i.e. extremities or head) *Use of iterative reconstruction technique DLP: 1487 mGy-cm FINDINGS: LUNG BASES: 5 mm nodule lateral aspect of the right lower lobe (series 4, image 50), stable. Respiratory motion artifact limits evaluation. Bibasilar atelectasis. No pneumothorax. No large pleural effusion. Slight elevation the right hemidiaphragm. LIVER, GALLBLADDER, AND BILIARY TREE: Liver is enlarged and demonstrates decreased hepatic attenuation suggesting hepatic steatosis. No focal hepatic lesion or biliary ductal dilatation is present. The gallbladder is unremarkable with no evidence of radiopaque gallstones, gallbladder wall thickening, or obvious pericholecystic inflammatory changes. PANCREAS: Unremarkable. SPLEEN: Unremarkable. ADRENAL GLANDS: Unremarkable. KIDNEYS AND URETERS: Redemonstration of right renal upper pole exophytic cystic focus measuring up to 3.9 cm, not requiring follow-up. Additional subcentimeter hypodense focus along the posterior aspect of the right renal lower pole too small to characterize though statistically representing a cyst. The kidneys are normal in size, shape, and attenuation. No hydronephrosis, hydroureter, or calculi seen. No perinephric stranding. BLADDER: Unremarkable. GASTROINTESTINAL TRACT: The small and large bowel are unremarkable. The appendix is unremarkable. ABDOMINAL WALL: No significant hernia is appreciated. The right lateral abdominal wall is incompletely evaluated secondary to patient positioning in the gantry. LYMPH NODES: Normal. VASCULAR: Unremarkable. PELVIC VISCERA: Unremarkable. OSSEOUS STRUCTURES: Mild degenerative changes of the thoracolumbar spine. Sclerotic foci in the bilateral iliac bone statistically representing bone islands. CT/CT abdomen pelvis wo IV con IMPRESSION: 1. No acute process of the abdomen or pelvis identified. 2. No nephrolithiasis or hydronephrosis. 3. Right lateral abdominal wall is incompletely evaluated secondary to patient positioning in the gantry. 4. Stable 5 mm nodule in the right lower lobe of the lung. 5. Enlarged liver with decreased hepatic attenuation suggesting hepatic steatosis. 6. Right renal upper pole exophytic cystic focus measuring up to 3.9 cm, not requiring follow-up. Additional subcentimeter hypodense focus along the posterior aspect of the right renal lower pole too small to characterize though statistically representing a cyst.
== END 2023-12-08 10:13 | disposition home or self-care (01) ==
LOC: HO.CT 10:12
PROVIDERS: PCP Nurse Practitioner Family; Visit Provider Nurse Practitioner Family
DX: R10.9 Unspecified abdominal pain (principal)
CPT/HCPCS: 74176

== ENCOUNTER 2023-12-09 15:19 | Outpatient (AMB) | payer BC, SELFPAY ==
[2023-12-09 15:23] VITALS: BP 132/80; PULSE 94; TEMP 36.6; O2SAT 97; BMI 45.8
--- NOTE | 2023-12-09 15:23 | AM.OFFWIN_ITS ---
Intake Vital Signs 12/09/23 15:23 Height 6 ft Weight 338 lb BMI 45.8 BP 132/80 Blood Pressure Location Lt brachial Position Sitting Pulse 94 Pulse Source Pulse Oximeter Temp 97.9 F Temp Source Oral Pulse Oximetry (%) 97 Oxygen Delivery Method Room Air Intake Visit Reasons: EST/work clearance(lobby) Intake Note: pt is here for work clearance Patient Tobacco Use Status: Never used Tobacco Allergies No Known Allergies [No Known Allergies*] Allergy (Verified 12/09/23 15:23) Do you need a note to return to daycare/school/sports/work: Yes HPI HPI Comments History of Present Illness Details 43 y/o male patient who presents to walk in clinic for medical clearance to return to work. Pt had right upper abdominal pain and CT-scan was done yesterday which was unremarkable. 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 needs: No Hearing needs: No Vision needs: No Review of Systems Const All systems reviewed & are unremarkable except as noted in HPI and below Physical Exam Vital Signs: Last Vital Signs Temp 97.9 F 12/09/23 15:23 Pulse 94 12/09/23 15:23 BP 132/80 12/09/23 15:23 Pulse Ox 97 12/09/23 15:23 Oxygen Delivery Method Room Air 12/09/23 15:23 BMI result Body Mass Index 45.8 Const General: comfortable and no acute distress Nutritional Appearance: obese morbidly obese GI Inspection: Yes Abdominal panniculus present and Yes obesity Palpation (GI): Soft to palpation and Tenderness to palpation present (GI) in the RUQ Auscultation: normal bowel sounds Assessment & Plan Assessment & Plan (1) Abdominal pain: Comment: CT scan ordered - unremarkable Code(s): R10.9 - Unspecified abdominal pain Qualifiers: Abdominal location: right upper quadrant Qualified Code(s): R10.11 - Right upper quadrant pain Plan: - Pt asking to return to work. - He feels 90% better - Provided him with medical note for work. - Per ROS Pt is medically cleared. Plan - Pt asking to return to work. - He feels 90% better - Provided him with medical note for work. - Per ROS Pt is medically cleared. Coding Level of Care Code Est Pt Level 3 (06325) Diagnoses Right upper quadrant abdominal pain R10.11 Abdominal location: right upper quadrant Time Spent (min) 10
== END 2023-12-09 15:51 | disposition home or self-care (01) ==
PROVIDERS: PCP Nurse Practitioner Family; Visit Provider Nurse Practitioner Family
DX: R10.11 Right upper quadrant pain (principal)
CPT/HCPCS: 99213

== ENCOUNTER 2024-02-10 14:05 | Outpatient (AMB) | payer BC, SELFPAY ==
--- NOTE | 2024-02-10 14:02 | A.OFFPC_ITS ---
Intake Visit Reasons: Adverse reaction to Jardiance [phone] (ag) Intake Note: Patient would like to discuss reaction to Jardiance Allergies No Known Allergies [No Known Allergies*] Allergy (Verified 02/10/24 15:03) Medication List - Last Reconciled 02/10/24 by JORGE L Hoyt atorvastatin 10 mg PO BEDTIME blood-glucose meter,continuous ([employer] G7 Boiler Shop Supervisor) bid teting blood-glucose sensor ([employer]excom G7 Sensor device) bid testing irbesartan 75 mg PO DAILY semaglutide (Ozempic) 0.25 mg (0.368 mL) subcut QWEEK Tobacco use date assessed: 12/01/23 Dental Screening Dental Screen Date: 12/01/23 HPI Adverse reaction to Jardiance [phone] (ag) HPI Details Pt is a diabetic, on an ARB and a statin. Last A1C was 6.7. Microalbumin is up to date. Denies polyuria, polydipsia, and neuropathy. Pt denies any signs and symptoms of hypoglycemia and does know how to correct it. Pt reports that his blood sugar has been well-controlled. He reports that jardiance caused stomach issues. Will stop this and send ozempic 0.25mg. Pt is interested in a glucose sensor, will send. Pt reports that he is losing weight (walking more and watching his diet more) FORMERLY [facility], [facility] Medical History (Updated 12/09/23 @ 15:46 by Charlee Augustin NP) Fatty liver Hypertension 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 Surgical History S/P left knee surgery S/P eye surgery Family History Father Lung cancer Mother Diabetes Substance use disorder Social History Housing: House Alcohol intake: current Alcohol intake frequency: holidays/special occasions only Patient Tobacco Use Status: Never used Tobacco e-Cigarette/Vaping Use: Currently Using Second Hand Smoke Exposure: No service: No 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 Jevon Jamison, Sri Guerrier, Eleuterio Sullivan and colleagues, with an educational eleanor from [employer]. Review of Systems Const Reports as per HPI Physical exam (Primary Care) Tobacco/Smoking Status: Tobacco use Status Tobacco use date assessed 12/01/23 02/10/24 14:04 Patient Tobacco Use Status Never used Tobacco 02/10/24 14:04 e-Cigarette/Vaping Use Currently Using 02/10/24 14:04 Thrive Assessment: Date of Thrive Assessment Date Thrive assessed 12/01/23 02/10/24 14:04 Const General: cooperative Orientation/consciousness: patient oriented x3 Neuro General: patient oriented x3 Psych Appearance: grossly normal Mental Status: mental status grossly normal Speech and movement: Clear speech present Affect: normal affect Attitude: cooperative Thought process: Normal thought process present Thought content: Normal thought content present Insight: Good insight present (Psych) Judgement: Good judgement present (Psych) Telehealth Telehealth Telehealth Platform: [employer] Location of provider rendering services: practice address Location of patient: address on file Patient Identification confirmed using: Name, : Yes Telehealth method: video Patient verbally consented to treatment: Yes Patient verbally consented to billing insurance company: Yes Patient informed of any privacy concerns related to visit: Yes Minutes spent on Phone/Video with Pt.: 10 Assessment and Plan Assessment & Plan (1) Diabetes: Code(s): E11.9 - Type 2 diabetes mellitus without complications Plan The patient agreed to the use of a medical records specialist for this encounter. Scribed for JORGE L Martinez by Mandi Andrade medical records specialist, on 02/10/2024 at 14:45 EST. Orders: Orders Complete Blood Count Auto Diff Today E11.9 - Type 2 diabetes mellitus without complications Comprehensive [place]. Panel Fast Today E11.9 - Type 2 diabetes mellitus without complications Lipid Panel Today E11.9 - Type 2 diabetes mellitus without complications TSH reflex Free T4 Today E11.9 - Type 2 diabetes mellitus without complications UA CC w/rflx Micro + Cult Today E11.9 - Type 2 diabetes mellitus without complications Medications: New blood-glucose meter,continuous ([employer]excom G7 Boiler Shop Supervisor) bid teting 1 ea 0RF diabetes blood-glucose sensor (Dexcom G7 Sensor device) bid testing 1 ea 2RF diabetes Refilled semaglutide (Ozempic) for 4 weeks 0.25 mg (0.368 mL) subcut QWEEK 3 mL 2RF Discontinued empagliflozin (Jardiance) Discontinued Reason: Patient no longer taking 10 mg PO DAILY 90 tabs 0RF Coding Level of Care Code Tele Est Pt Level 3 (44719) Diagnoses Diabetes E11.9
== END 2024-02-10 15:19 | disposition home or self-care (01) ==
LOC: HO.HMGC 14:05
PROVIDERS: PCP Nurse Practitioner Family; Visit Provider Nurse Practitioner Family
DX: E11.9 Type 2 diabetes mellitus without complications (principal)
CPT/HCPCS: 99213

== ENCOUNTER 2024-03-16 08:06 | Outpatient (REF) | payer BC, SELFPAY ==
[2024-03-16 10:22] LABS: MANUAL DIFF FLAG NO
[2024-03-16 10:40] LABS: Basophils Percent Auto 0.7 % (0-2); Eosinophils Absolute Auto 0.1 X10*3/uL (0.0-0.4); Eosinophils Percent Auto 2.4 % (0-4); Hematocrit 45.8 % (42.0-52.0); Hemoglobin 14.8 g/dl (14.0-18.0); Imm Gran Abs Auto 0.01 X10*3/uL (0.00-0.03); Imm Gran Pct Auto 0.2 % (0.0-0.4); Lymphocytes Absolute Auto 1.7 X10*3/uL (1.2-4.9); Lymphocytes Percent Auto 31.3 % (20-40); Mean Corpuscular HGB Conc 32.3 g/dl (31.0-36.0); Mean Corpuscular Hemoglobin 28.7 pg (27.0-33.0); Mean Corpuscular Volume 88.9 fL (80.0-98.0); Mean Platelet Volume 9.3 fL (9.4-12.4); Monocytes Absolute Auto 0.5 X10*3/uL (0.1-1.2); Monocytes Percent Auto 8.3 % (2-11); Neutrophils Absolute Auto 3.2 x10*3/uL (2.0-8.3); Neutrophils Percent Auto 57.1 % (45-73); Platelet Count 225 X10*3/uL (160-400); Red Blood Count 5.15 X10*6/uL (4.60-5.80); Red Cell Distribution Width 13.2 % (11.0-16.0); White Blood Count 5.5 X10*3/uL (4.8-10.8)
[2024-03-16 10:50] LABS: Appearance Urine Clear; Color Urine Yellow; Glucose Urine UA Negative (Negative); Leukocyte Esterase Urine Negative (Negative); Nitrite Urine Negative (Negative); Urine Blood Negative (Negative); Urine Ketones Negative (Negative); Urine Protein Negative (Neg-Trace)
[2024-03-16 11:11] LABS: Alanine Aminotransferase 22 U/L (0-40); Albumin Level 4.1 g/dL (3.5-5.0); Alkaline Phosphatase 34 U/L (39-117); Anion Gap 14 (12-20); Aspartate Amino Transferase 25 U/L (5-37); Bilirubin Total 0.6 mg/dL (0.0-1.0); Blood Urea Nitrogen 12 mg/dL (9-16); Calcium 9.3 mg/dL (8.4-10.2); Carbon Dioxide 26 mmol/L (22-29); Chloride 106 mmol/L (96-108); Cholesterol 144 mg/dL (<200); Estimated Glomerular Filt Rate > 60; Glucose Fasting 135 mg/dL (60-99); HDL Cholesterol 45 mg/dL (>40); LDL Cholesterol Calculated 78 mg/dL (<100); Potassium 4.3 mmol/L (3.3-5.1); Sodium 142 mmol/L (135-145); TSH reflex Free T4 1.01 uIU/mL (0.32-4.0); Total Protein 7.2 g/dL (6.5-8.0); Triglycerides 106 mg/dL (<150)
== END 2024-03-16 08:07 | disposition home or self-care (01) ==
LOC: HO.HMGCLDS 08:06
PROVIDERS: PCP Nurse Practitioner Family; Visit Provider Nurse Practitioner Family
DX: E11.9 Type 2 diabetes mellitus without complications (principal)
CPT/HCPCS: 36415; 80053; 80061; 81003; 84443; 85025

== ENCOUNTER 2024-06-15 08:35 | Outpatient (AMB) | payer BC, SELFPAY ==
--- NOTE | 2024-06-15 08:38 | MHC.PC.OV ---
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 Will order labs. Due for colon screen, will refer to GI. Pt is a diabetic, on an ARB and a statin. A1C in office today is 6.6. Microalbumin is up to date. Denies polyuria, polydipsia, and neuropathy. Pt denies any signs and symptoms of hypoglycemia and does know how to correct it. He is not able to tolerate metformin. Pt has been working on his diet but has not been able to lose weight. Will send argentinamohan for his diabetes and weight loss. 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 needs: No Hearing needs: No Vision needs: No Questionnaire Thrive Questionnaire Date Thrive assessed: 06/15/24 I am a: Patient What is your living situation today?: I have a steady place to live Within the past 12 months, did the food you bought not last and you didn't have the money to get more?: I choose not to answer this question Within the past 12 months, did you worry whether your food would run out before you got money to buy more?: I choose not to answer this question Do you have trouble paying for medicines?: I choose not to answer this question Do you have trouble getting transportation to medical appointments?: I choose not to answer this question Do you have trouble paying your heating and electricity bill?: I choose not to answer this question Do you have trouble taking care of your child, family member or friend?: I choose not to answer this question Do you have trouble with day-to-day activities such as bathing, preparing meals, shopping, managing finances, etc.?: I choose not to answer this question Are you currently unemployed and looking for a job?: I choose not to answer this question Are you interested in more education?: I choose not to answer this question Please select the resources that you would like help with: Paying for medicine and None Currently or been in a relationship where the following occur: I choose not to answer THRIVE Score: 0 AUDIT C Alcohol Use Questionnaire (AUDIT-C) 1. How often do you have a drink containing alcohol?: 2-3 times a week 2. How many drinks containing alcohol do you have on a typical day when you are drinking?: 1 or 2 3. How often do you have six or more drinks on one occasion?: Less than monthly Total Score: 4 Score Reviewed/Action Taken: Yes BRODERICK-7 AMB Questionnaire BRODERICK-7 Date BRODERICK - 7 assessed: 06/15/24 Feeling nervous, anxious, or on edge: 1 = Several days Not being able to stop or control worryin = Several days Worrying too much about different things: 1 = Several days Trouble relaxin = Several days Being so restless that it is hard to sit still: 1 = Several days Becoming easily annoyed or irritable: 1 = Several days Feeling afraid as if something awful might happen: 1 = Several days Total BRODERICK-7 score (0-4 normal; 5-9 mild; 10-14 moderate; 15-21 severe): 7 Source: Developed by Drs. Jevon Jamison, Sri Guerrier, Eleuterio Sullivan and colleagues, with an educational eleanor from [email or web address]. BRODERICK-7 Assessment Billing BRODERICK-7 Assessment Tool: BRODERICK-7 Assessment 26420 Review of Systems Const Denies chills and Denies fever(s) Eyes Denies blurry vision ENT Denies vertigo, Denies dizziness and Denies sore throat Card Denies chest pain at rest, Denies chest pain with activity, Denies diaphoresis, Denies dyspnea and Denies dyspnea on exertion Resp Denies cough, Denies dyspnea, Denies dyspnea on exertion and Denies wheezing GI Denies abdominal pain, Denies melena, Denies hematochezia, Denies constipation, Denies diarrhea and Denies loose stools Denies hematuria Musc Denies numbness and Denies tingling Skin/Breast Denies lesions Neuro Denies vertigo, Denies dizziness, Denies numbness and Denies tingling Psych Denies anxiety, Denies depression, Denies homicidal ideation, Denies suicidal ideation and Denies other (substance abuse) Aller/Immun Denies wheezing Physical exam (Primary Care) Vital Signs: Last Vital Signs Pulse 80 06/15/24 08:44 BP 130/80 06/15/24 08:44 Pulse Ox 98 06/15/24 08:44 BMI result Body Mass Index 45.8 Tobacco/Smoking Status: Tobacco use Status Tobacco use date assessed 12/01/23 06/15/24 08:44 Patient Tobacco Use Status Never used Tobacco 06/15/24 08:44 e-Cigarette/Vaping Use Currently Using 06/15/24 08:44 Thrive Assessment: Date of Thrive Assessment Date Thrive assessed 06/15/24 06/15/24 08:45 Currently or been in a relationship where the following occur: I choose not to answer Const General: cooperative Nutritional Appearance: obese morbidly obese Orientation/consciousness: patient oriented x3 HENMT Head: Yes normal to inspection, Yes normocephalic and Yes atraumatic Ears: TM's normal bilaterally Eyes General: appearance normal, both eyes and all related structures Alignment and Position: alignment normal and position normal Neck Neck: Yes normal visual inspection, Yes no lymphadenopathy and Yes supple Resp Effort & Inspection: normal respiratory effort Auscultation: clear to auscultation bilaterally Cardio Rate: regular rate Rhythm: regular rhythm Heart sounds: S1 normal heart sound present, S2 normal heart sound present and no murmurs GI Palpation (GI): Soft to palpation and nontender Auscultation: normal bowel sounds Male General Exam: Yes normal external exam Penis: normal penis Scrotum: scrotum normal, testes descended bilaterally and no inguinal hernias Testes: no testicular mass Skin Rashes: no rashes Neuro General: patient oriented x3, moves all extremities, no focal motor deficits and deep tendon reflexes 2+ bilaterally Romberg Test: Negative Psych Appearance: grossly normal Mental Status: mental status grossly normal Speech and movement: Normal speech and movement present Affect: normal affect Attitude: cooperative Thought process: Normal thought process present Thought content: Normal thought content present Insight: Good insight present (Psych) Judgement: Good judgement present (Psych) Results AMB Hemoglobin A1c AMB Hemoglobin A1c 6.6 % Last Edit by Moises Ray CMA on 06/15/24 09:18 Immunizations pneumoc 20-ajit conj-dip cr(PF) 0.5 mL IM syringe Performing Provider: JORGE L Hoyt [facility] Administered by: Moises Ray CMA on 06/15/24 09:45 Dose Route Admin Location Dispensed Lot Number Expiration Date NDC Electric Organ Inspector And Repairer 0.5 mL IM Right Deltoid 0.5 mL [id number] 03/30/25 8268-6687-22 [employer]pt[employer] VIS Given Date VIS Provided VIS Publication Date 06/15/24 Single Vaccine 21 Eligibility Eligibility Date Funding Source Not VF Eligible 06/15/24 Private Results Reviewed Results Reviewed: Laboratory Last Values Hgb A1c (Clinic) 6.6 % (4.0-6.0) H 06/15/24 09:17 Assessment and Plan Assessment & Plan (1) Diabetes: Code(s): E11.9 - Type 2 diabetes mellitus without complications Plan: Labs ordered, starting lindajaro (2) Screening for colon cancer: Code(s): Z12.11 - Encounter for screening for malignant neoplasm of colon Plan: Referred to GI Plan The patient agreed to the use of a medical technologist blood bank for this encounter. Scribed for Per García, JACQUELINE-BC by Mandi Andrade medical technologist blood bank, on 06/15/2024 at 09:15 EST. Orders: Orders Comprehensive [place]. Panel Fast Today E11.9 - Type 2 diabetes mellitus without complications TSH reflex Free T4 Today E11.9 - Type 2 diabetes mellitus without complications UA CC w/rflx Micro + Cult Today E11.9 - Type 2 diabetes mellitus without complications AMB Hemoglobin A1c Today Z13.9 - Encounter for screening, unspecified Complete Blood Count Auto Diff Today E11.9 - Type 2 diabetes mellitus without complications Lipid Panel Today E11.9 - Type 2 diabetes mellitus without complications Pneumococcal 20 Immunization Today Z23 - Encounter for immunization Referrals Gastroenterology Referral Z12.11 - Encounter for screening for malignant neoplasm of colon Medications: New tirzepatide (Mounjaro) for 4 weeks 2.5 mg (0.5 mL) subcut QWEEK 30 days 2.5 mL 0RF tirzepatide (Mounjaro) for 4 weeks 2.5 mg (0.5 mL) subcut QWEEK 30 days 2.5 mL 0RF Refilled atorvastatin 10 mg PO BEDTIME 90 tabs 2RF irbesartan 75 mg PO DAILY 90 tabs 2RF Coding Level of Care Code Est Pt Prev Care 40-64y(71032) Diagnoses Diabetes E11.9 Screening for colon cancer Z12.11 Additional Codes BRODERICK-7 Assessment Billing - BRODERICK-7 Assessment Tool: BRODERICK-7 Assessment 57934 ([id number])
[2024-06-15 08:44] VITALS: BP 130/80; PULSE 80; O2SAT 98; BMI 45.8
== END 2024-06-15 09:47 | disposition home or self-care (01) ==
PROVIDERS: PCP Nurse Practitioner Family; Visit Provider Nurse Practitioner Family
DX: Z00.00 Encounter for general adult medical examination without abnormal findings (principal); E11.9 Type 2 diabetes mellitus without complications; Z12.11 Encounter for screening for malignant neoplasm of colon; Z23 Encounter for immunization
CPT/HCPCS: 83036; 90471; 90677; 99396

== ENCOUNTER 2024-06-15 09:48 | Outpatient (REF) | payer BC, SELFPAY ==
[2024-06-15 13:28] LABS: MANUAL DIFF FLAG NO
[2024-06-15 13:31] LABS: Appearance Urine Clear; Color Urine Yellow; Glucose Urine UA Negative (Negative); Leukocyte Esterase Urine Negative (Negative); Nitrite Urine Negative (Negative); Specific Gravity - Urine 1.025 (1.005-1.025); Urine Blood Negative (Negative); Urine Ketones Negative (Negative); Urine Protein Negative (Neg-Trace)
[2024-06-15 13:44] LABS: Basophils Absolute Auto 0.1 X10*3/uL (0.0-0.2); Basophils Percent Auto 0.8 % (0-2); Eosinophils Absolute Auto 0.1 X10*3/uL (0.0-0.4); Eosinophils Percent Auto 1.8 % (0-4); Hematocrit 47.3 % (42.0-52.0); Hemoglobin 15.4 g/dl (14.0-18.0); Imm Gran Abs Auto 0.01 X10*3/uL (0.00-0.03); Imm Gran Pct Auto 0.2 % (0.0-0.4); Lymphocytes Absolute Auto 1.8 X10*3/uL (1.2-4.9); Lymphocytes Percent Auto 29.4 % (20-40); Mean Corpuscular HGB Conc 32.6 g/dl (31.0-36.0); Mean Corpuscular Volume 89.1 fL (80.0-98.0); Mean Platelet Volume 9.7 fL (9.4-12.4); Monocytes Absolute Auto 0.5 X10*3/uL (0.1-1.2); Monocytes Percent Auto 8.6 % (2-11); Neutrophils Absolute Auto 3.6 x10*3/uL (2.0-8.3); Neutrophils Percent Auto 59.2 % (45-73); Platelet Count 219 X10*3/uL (160-400); Red Blood Count 5.31 X10*6/uL (4.60-5.80); Red Cell Distribution Width 13.2 % (11.0-16.0)
[2024-06-15 14:14] LABS: Alanine Aminotransferase 32 U/L (0-40); Albumin Level 4.1 g/dL (3.5-5.0); Alkaline Phosphatase 38 U/L (39-117); Anion Gap 13 (12-20); Aspartate Amino Transferase 33 U/L (5-37); Bilirubin Total 0.5 mg/dL (0.0-1.0); Blood Urea Nitrogen 14 mg/dL (9-16); Calcium 9.5 mg/dL (8.4-10.2); Carbon Dioxide 25 mmol/L (22-29); Chloride 106 mmol/L (96-108); Cholesterol 167 mg/dL (<200); Estimated Glomerular Filt Rate > 60; Glucose Fasting 132 mg/dL (60-99); HDL Cholesterol 52 mg/dL (>40); LDL Cholesterol Calculated 95 mg/dL (<100); Magnesium 2.3 mg/dL (1.6-2.6); Potassium 4.4 mmol/L (3.3-5.1); Sodium 140 mmol/L (135-145); Total Protein 7.4 g/dL (6.5-8.0); Triglycerides 101 mg/dL (<150)
[2024-06-15 14:23] LABS: Vitamin B12 380 pg/mL (200-900)
[2024-06-16 11:49] LABS: Ceruloplasmin 23 mg/dL (14-30)
[2024-06-16 18:23] LABS: Transglutaminase IgA <1.0 U/mL
[2024-06-19 03:39] LABS: Zinc 71 mcg/dL (60-130)
[2024-06-21 12:14] LABS: Endomysial IgA Antibody Negative (Negative)
== END 2024-06-15 09:49 | disposition home or self-care (01) ==
LOC: HO.HMGCLDS 09:48
PROVIDERS: PCP Nurse Practitioner Family; Visit Provider Nurse Practitioner Family
DX: Z13.9 Encounter for screening, unspecified (principal); R74.8 Abnormal levels of other serum enzymes; E11.9 Type 2 diabetes mellitus without complications
CPT/HCPCS: 36415; 80053; 80061; 81003; 82390; 82607; 83735; 84443; 84630; 85025; 86231; 86364

== ENCOUNTER 2025-01-08 08:17 | Outpatient (AMB) | payer BC, SELFPAY ==
[2025-01-08 08:19] VITALS: BP 138/82; PULSE 79; O2SAT 98; BMI 45.6
--- NOTE | 2025-01-08 08:19 | MHC.PC.OV ---
Vital Signs 01/08/25 08:19 Height 6 ft Weight 336 lb BMI 45.6 BP 138/82 Blood Pressure Location Lt brachial Position Sitting Pulse 79 Pulse Source Pulse Oximeter Pulse Oximetry (%) 98 Oxygen Delivery Method Room Air Intake Visit Reasons: 6 month follow up Contract Runner Required: No Accompanied by: Self / Same As Patient Allergies No Known Allergies [No Known Allergies*] Allergy (Verified 01/08/25 09:03) Medication List - Last Reconciled 01/08/25 by JORGE L Hoyt atorvastatin 20 mg PO BEDTIME blood-glucose meter,continuous (Dexcom G7 Exercise Physiology Professor) bid teting blood-glucose sensor (Dexcom G7 Sensor device) bid testing irbesartan 75 mg PO DAILY lancets (Kare Partnersuch Delica Plus Lancet) Test blood sugar twice a day tirzepatide (Mounjaro) 2.5 mg (0.5 mL) subcut QWEEK Tobacco use date assessed: 01/08/25 Dental Screening Dental Screen Date: 01/08/25 Did you have a dental visit in the last 12 months?: Yes Did you have a dental problem in the last 6 months where you did not have access to dental care?: No Was dental information given to patient?: Patient has dentist HPI 6 month follow up HPI Details Chief Complaint The patient presents for a follow-up concerning diabetes management and review of a recent hospital visit for chest discomfort. History of Present Illness The patient is a 44-year-old male presenting for follow-up on diabetes management and a review of hospital discharge related to chest discomfort experienced while in [place]. Approximately a week before hospitalization, he noted chest discomfort radiating to his arm, prompting hospital evaluation (missing notes). pt reported Diagnostic tests included an EKG, which was normal, and a cardiac catheterization showing no blockages; he was discharged with recommendations to continue daily a low-dose aspirin. The patient is also managing diabetes, with a recent A1c result of 6.1%. He experienced positive outcomes with a GLP-1 agonist but encountered insurance-related challenges affecting his treatment continuity. The issue has been addressed, and an increased dosage of Ozempic is planned due to its proven efficacy and tolerability. The patient denies classical diabetes-related symptoms or complications including polyuria, polydipsia, or neuropathy. Reports eye exam is up to date. Social History - Health insurance issues with medication coverage recently resolved Health Maintenance - Discussed increase of Ozempic for diabetes management, given good tolerance and improved A1c Review of Systems - Cardiovascular: Denies current chest pain or shortness of breath - Gastrointestinal: Denies abdominal pain, blood in stool, constipation, diarrhea - Musculoskeletal: Denies radicular upper extremity symptoms - Neurological: Denies polyuria, polydipsia, neuropathy; positive sensation in feet Physical Exam General: Cooperative, healthy appearing, comfortable, no acute distress and well developed. Patient is morbidly obese. Orientation: Patient oriented x3 Limitations: No limitations Head: Normal to inspection Ears: Hearing grossly normal bilaterally Nose: Normal external nose present Face and sinus: Normal facial exam Eyes: Appearance normal, both eyes and all related structures Neck: Normal visual inspection and Yes full ROM Respiratory: Normal respiratory effort and able to speak in complete sentences. Clear to auscultation bilaterally Cardiovascular: Regular rate and rhythm. Normal S1 and S2 GI: Normal to inspection. Soft to palpation and nontender Skin: No rashes or lesions noted Neuro: Patient oriented x3. Positive sensation with the use of monofilament to feet, feet intact Extremities: Normal to inspection Results - Tests and diagnostics: Cardiac catheterization reported no blockages; EKG reportedly normal Plan I will increase the patient's Ozempic dosage to 1 mg in response to his well-managed A1c and tolerance to the medication. The previous hospital evaluation revealed no cardiac issues, and the patient remains on an 81 mg aspirin regimen to prevent future complications. The patient reports stable health without current symptoms of complication, and his baseline neurological functioning will continue to be monitored through positive sensation checks. Insurance-related medication access issues have been resolved, ensuring continuity in treatment. I will track down Hospital notes from [place]. Increasing MARELY from 75 to 150mg daily Discussion Notes I discussed with the patient the plan to adjust his diabetes medication dosage due to positive response and tolerance, ensuring better long-term management. We reviewed the findings from the recent hospitalization concerning his heart health, affirming the guidance to continue daily aspirin. The potential benefits of these interventions include controlled blood sugar and minimized cardiovascular risks, without any new adverse symptoms noted. I emphasized the importance of adhering to this plan and the resolution of insurance issues, which will ensure unimpeded access to medication. Follow-up care and any developments in symptoms or health should be communicated promptly. Patient Instructions - Continue taking 81 mg of aspirin daily as previously instructed. - Increase Ozempic dose to 1 mg as discussed for diabetes management. - Monitor for any new or worsening symptoms and seek care promptly if needed. - Follow up on any health developments, especially pertaining to chest discomfort or diabetes management. - Ensure regular medication access and adherence as insurance issues are now resolved. 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 1. Little interest or pleasure in doing things: not at all 2. Feeling down, depressed, or hopeless: not at all 3. Trouble falling or staying asleep, or sleeping too much: more than half the days 4. Feeling tired or having little energy: more than half the days 5. Poor appetite or overeating: several days 6. Feeling bad about yourself - or that you are a failure or have let yourself or your family down: not at all 7. Trouble concentrating on things, such as reading the newspaper or watching television: not at all 8. Moving or speaking so slowly that other people could have noticed. Or the opposite - being so fidgety or restless that you have been moving around a lot more than usual: not at all 9. Thoughts that you would be better off or of hurting yourself in some way: not at all Total score: 5 Depression Screening Interpretation: Negative Depression Screening Done: Yes 90362 - PHQ-9 Billing: Yes Source: Developed by Drs. Jevon Jamison, Sri Guerrier, Eleuterio Sullivan and colleagues, with an educational eleanor from [employer]. Thrive Questionnaire Date Thrive assessed: 01/08/25 I am a: Patient What is your living situation today?: I do not have a steady places to live I choose not to answer this question Within the past 12 months, did the food you bought not last and you didn't have the money to get more?: Sometimes True Within the past 12 months, did you worry whether your food would run out before you got money to buy more?: Sometimes True Do you have trouble paying for medicines?: Yes Do you have trouble getting transportation to medical appointments?: Yes Do you have trouble paying your heating and electricity bill?: Yes Do you have trouble taking care of your child, family member or friend?: Yes Do you have trouble with day-to-day activities such as bathing, preparing meals, shopping, managing finances, etc.?: No Are you currently unemployed and looking for a job?: No Are you interested in more education?: No Please select the resources that you would like help with: Housing/Nursing Home, Food, Paying for medicine and Utilities Currently or been in a relationship where the following occur: No concerns reported THRIVE Score: 5 AUDIT C Alcohol Use Questionnaire (AUDIT-C) 1. How often do you have a drink containing alcohol?: 2-3 times a week 2. How many drinks containing alcohol do you have on a typical day when you are drinking?: 1 or 2 3. How often do you have six or more drinks on one occasion?: Never Total Score: 3 Score Reviewed/Action Taken: Yes BRODERICK-7 AMB Questionnaire BRODERICK-7 Date BRODERICK - 7 assessed: 01/08/25 Feeling nervous, anxious, or on edge: 1 = Several days Not being able to stop or control worryin = Several days Worrying too much about different things: 1 = Several days Trouble relaxin = Several days Being so restless that it is hard to sit still: 1 = Several days Becoming easily annoyed or irritable: 1 = Several days Feeling afraid as if something awful might happen: 1 = Several days Total BRODERICK-7 score (0-4 normal; 5-9 mild; 10-14 moderate; 15-21 severe): 7 Source: Developed by Drs. Jevon Jamison, Sri Guerrier, Eleuterio Sullivan and colleagues, with an educational eleanor from [employer]. BRODERICK-7 Assessment Billing BRODERICK-7 Assessment Tool: BRODERICK-7 Assessment 19349 Physical exam (Primary Care) Vital Signs: Last Vital Signs Pulse 79 01/08/25 08:19 BP 138/82 01/08/25 08:19 Pulse Ox 98 01/08/25 08:19 Oxygen Delivery Method Room Air 01/08/25 08:19 BMI result Body Mass Index 45.6 Tobacco/Smoking Status: Tobacco use Status Tobacco use date assessed 01/08/25 01/08/25 08:20 Patient Tobacco Use Status Never used Tobacco 01/08/25 08:20 e-Cigarette/Vaping Use Currently Using 01/08/25 08:20 PHQ-9: PHQ-9 Score PHQ-9: Total score 5 01/08/25 08:20 Depression Screening Interpretation: Negative Thrive Assessment: Date of Thrive Assessment Date Thrive assessed 01/08/25 01/08/25 08:20 Currently or been in a relationship where the following occur: No concerns reported Results AMB Hemoglobin A1c AMB Hemoglobin A1c 6.1 % Last Edit by Moises Ray CMA on 01/08/25 08:40 Results Reviewed Results Reviewed: Laboratory Last Values Hgb A1c (Clinic) 6.1 % (4.0-6.0) H 01/08/25 08:38 Coding Level of Care Code Est Pt Level 4 (53675) Diagnoses Morbidly obese E66.01 Diabetes E11.9 Chest pain R07.9 HTN (hypertension) I10 Additional Codes BRODERICK-7 Assessment Billing - BRODERICK-7 Assessment Tool: BRODERICK-7 Assessment 08731 ([id number]) PHQ-9 - 10570 - PHQ-9 Billing: Yes ([id number]) Assessment & Plan Assessment & Plan (1) Morbidly obese: Code(s): E66.01 - Morbid (severe) obesity due to excess calories Category: Medical (2) Diabetes: Code(s): E11.9 - Type 2 diabetes mellitus without complications Category: Medical (3) Chest pain: Code(s): R07.9 - Chest pain, unspecified Category: Medical (4) HTN (hypertension): Code(s): I10 - Essential (primary) hypertension Category: Medical Plan . Orders: Orders AMB Hemoglobin A1c Today Z13.9 - Encounter for screening, unspecified Comprehensive [place]. Panel Fast Today E11.9 - Type 2 diabetes mellitus without complications Microalbumin, Random (w Creat) Today E11.9 - Type 2 diabetes mellitus without complications Complete Blood Count Auto Diff Today E11.9 - Type 2 diabetes mellitus without complications TSH reflex Free T4 Today E11.9 - Type 2 diabetes mellitus without complications UA CC w/rflx Micro + Cult Today E11.9 - Type 2 diabetes mellitus without complications Lipid Panel Today E11.9 - Type 2 diabetes mellitus without complications Medications: New semaglutide (Ozempic) 1 mg (0.75 mL) subcut QWEEK 3 mL 0RF Changed From irbesartan 75 mg PO DAILY 90 tabs 2RF To irbesartan 150 mg PO DAILY 90 tabs 2RF Discontinued semaglutide (Ozempic) Discontinued Reason: Doctor's Order 0.5 mg (0.736 mL) subcut QWEEK 9 mL 1RF
== END 2025-01-08 09:47 | disposition home or self-care (01) ==
LOC: HO.HMCC 08:18
PROVIDERS: PCP Nurse Practitioner Family; Visit Provider Nurse Practitioner Family
DX: E11.9 Type 2 diabetes mellitus without complications (principal); E66.01 Morbid (severe) obesity due to excess calories; R07.9 Chest pain, unspecified; Z68.42 Body mass index [BMI] 45.0-49.9, adult; I10 Essential (primary) hypertension

== ENCOUNTER → 2025-01-08 08:17 | Outpatient (BNVA) | payer BC, SELFPAY | PROVIDERS: PCP Nurse Practitioner Family; Visit Provider Nurse Practitioner Family | DX: E66.01 Morbid (severe) obesity due to excess calories (principal); Z68.42 Body mass index [BMI] 45.0-49.9, adult; E11.9 Type 2 diabetes mellitus without complications; R07.9 Chest pain, unspecified; I10 Essential (primary) hypertension | CPT/HCPCS: 83036; 96127 ==

== ENCOUNTER → 2025-06-14 15:51 | Outpatient (BNVA) | payer SELFPAY | PROVIDERS: PCP Nurse Practitioner Family; Visit Provider Physician Assistant Medical | DX: Z02.79 Encounter for issue of other medical certificate (principal) ==

== ENCOUNTER 2025-06-26 10:33 | Outpatient (REF) | payer BC, SELFPAY ==
[2025-06-26 13:20] LABS: Appearance Urine Clear; Glucose Urine UA Negative (Negative); PH 6.5 (5.0-9.0); Specific Gravity - Urine 1.020 (1.005-1.025)
[2025-06-26 13:39] LABS: MANUAL DIFF FLAG NO
[2025-06-26 14:03] LABS: Hematocrit 43.7 % (42.0-52.0); Hemoglobin 14.5 g/dl (14.0-18.0); Imm Gran Abs Auto 0.01 X10*3/uL (0.00-0.03); Imm Gran Pct Auto 0.2 % (0.0-0.4); Lymphocytes Absolute Auto 1.6 X10*3/uL (1.2-4.9); Mean Corpuscular HGB Conc 33.2 g/dl (31.0-36.0); Mean Corpuscular Hemoglobin 29.2 pg (27.0-33.0); Mean Corpuscular Volume 87.9 fL (80.0-98.0); NRBC Abs Auto 0.000 X10*3/uL (0.0-0.012); NRBC Pct Auto 0.0 /100WBC (0.0-0.2); Platelet Count 213 X10*3/uL (160-400); Red Blood Count 4.97 X10*6/uL (4.60-5.80); White Blood Count 5.0 X10*3/uL (4.8-10.8)
[2025-06-26 14:18] LABS: Alanine Aminotransferase 25 U/L (0-40); Albumin Level 4.1 g/dL (3.5-5.0); Alkaline Phosphatase 40 U/L (39-117); Anion Gap 10 (12-20); Aspartate Amino Transferase 34 U/L (5-37); Blood Urea Nitrogen 13 mg/dL (9-16); Calcium 8.8 mg/dL (8.4-10.2); Carbon Dioxide 27 mmol/L (22-29); Chloride 107 mmol/L (96-108); Cholesterol 185 mg/dL (<200); Estimated Glomerular Filt Rate > 60; HDL Cholesterol 47 mg/dL (>40); Potassium 4.2 mmol/L (3.3-5.1); Sodium 140 mmol/L (135-145); Total Protein 6.9 g/dL (6.5-8.0); Triglycerides 130 mg/dL (<150)
[2025-06-26 14:35] LABS: Microalbum/Creatinine Ratio Ur 5.9 ug/mg cr (<30)
== END 2025-06-26 10:34 | disposition home or self-care (01) ==
LOC: HO.HMGCLDS 10:33
PROVIDERS: PCP Nurse Practitioner Family; Visit Provider Nurse Practitioner Family
DX: E11.9 Type 2 diabetes mellitus without complications (principal); R10.9 Unspecified abdominal pain; I10 Essential (primary) hypertension; M54.50 Low back pain, unspecified; R80.9 Proteinuria, unspecified; K46.9 Unspecified abdominal hernia without obstruction or gangrene; Z79.899 Other long term (current) drug therapy; Z79.1 Long term (current) use of non-steroidal anti-inflammatories (NSAID)
CPT/HCPCS: 36415; 80053; 80061; 81003; 82043; 82570; 84443; 85025

== ENCOUNTER 2025-06-26 10:33 | Outpatient (AMB) | payer BC, SELFPAY ==
[2025-06-26 10:36] VITALS: BP 142/92; PULSE 71; RESP 16; TEMP 36.8; O2SAT 96; BMI 46.9
--- NOTE | 2025-06-26 10:36 | AM.OFFWIN_ITS ---
Intake Vital Signs 06/26/25 10:36 Height 6 ft Weight 346 lb BMI 46.9 BP 142/92 H Blood Pressure Location Lt brachial Position Sitting Respiration 16 Pulse 71 Pulse Source Pulse Oximeter Temp 98.2 F Temp Source Oral Pulse Oximetry (%) 96 Oxygen Delivery Method Room Air Intake Visit Reasons: EP Lower back pain on left side Patient Tobacco Use Status: Never used Tobacco Accompanied by: Self / Same As Patient Allergies No Known Allergies (No Known Allergies*) Allergy (Verified 06/26/25 10:36) Medication List - Last Reconciled 06/26/25 by Willa Saba MD atorvastatin 20 mg PO BEDTIME blood-glucose sensor (Dexcom G7 Sensor device) bid testing blood-glucose,candy mixer,cont (Dexcom G7 Seat Joiner) bid teting irbesartan 150 mg PO DAILY lancets (FP Completeuch Delica Plus Lancet) Test blood sugar twice a day HPI EP Lower back pain on left side HPI Details History of Present Illness The patient is a 45 year old male presenting with acute back pain. Back Pain: - The onset of the pain began either on Wednesday or Wednesday, worsening by Wednesday. - The patient described the pain as aime p and located in the lower back area. - The pain exacerbated when he was remov ing shoes and clothing. 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 - Pain is located right flank area, tend er to percussion. Proteinuria: - During a DOT physical exam last week, protein was detected in the urine. - The patient was advised to follow up o n this finding with PCP Hernia: - Detected during the DOT physical exam[place] nation. 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 - Recent activity: Took a day off work d ue to pain - Plans to take the remainder of the wee k off utilizing sick leave Diagnostic Results: - Recent urine sample showed proteinuria during DOT physical CT 11/2023, showed normal left kidney Problem List - Acute back pain - Proteinuria - Diabetes Mellitus - Hypertension - Hernia Patient Instructions - Take Tylenol for pain instead of Aleve or Naproxen - Muscle relaxer prescribed; to be taken at night Baclofen - Follow-up on laboratory tests as order ed - Drink plenty of water - Rest and take off work until Wednesday f/u with PCP Review of Systems - General: No fever no chills - Neurological: No headaches no dizziness - Ear nose throat: No sore throat no hearing difficulty no ear pain - Cardiovascular: No syncope, no chest pain, no palpitations - Gastrointestinal: No nausea vomiting or diarrhea - Endocrine: No polyuria polydipsia no heat intolerance - Genitourinary: No dysuria , no blood in urine Physical Exam General: No acute distress HEENT: No acute findings Neck: Supple Respiratory system: Able to talk in full sentences, no audible wheeze Cardiovascular: S1-S2 regular in rate and rhythm Gastrointestinal: non tender Back : right flank pain with percussion 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: Alert awake oriented x3 motor intact Skin: Normal turgor PFSH Medical History Fatty liver Hypertension 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 Surgical History S/P left knee surgery S/P eye surgery Family History Father Lung cancer Mother Diabetes Substance use disorder Social History Housing: House Alcohol intake: current Alcohol intake frequency: holidays/special occasions only Patient Tobacco Use Status: Never used Tobacco e-Cigarette/Vaping Use: Currently Using Second Hand Smoke Exposure: No service: No Current occupational status: employed 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 needs: No Hearing needs: No Vision needs: No Physical Exam Vital Signs: Last Vital Signs Temp 98.2 F 06/26/25 10:36 Pulse 71 06/26/25 10:36 Resp 16 06/26/25 10:36 BP 142/92 H 06/26/25 10:36 Pulse Ox 96 06/26/25 10:36 Oxygen Delivery Method Room Air 06/26/25 10:36 BMI result Body Mass Index 46.9 Assessment & Plan Assessment & Plan (1) Acute right flank pain: Code(s): R10.9 - Unspecified abdominal pain (2) Diabetes: Code(s): E11.9 - Type 2 diabetes mellitus without complications Qualifiers: Diabetes mellitus type: type 2 Diabetes mellitus long term care pharmacist insulin use: without long term care pharmacist use Diabetes mellitus complication status: with other specified complication Qualified Code(s): E11.69 - Type 2 diabetes mellitus with other specified complication (3) HTN (hypertension): Code(s): I10 - Essential (primary) hypertension Qualifiers: Hypertension type: primary hypertension Qualified Code(s): I10 - Essential (primary) hypertension Plan History of Present Illness The patient is a 45 year old male presenting with acute back pain. Back Pain: - The onset of the pain began either on Wednesday or Wednesday, worsening by Wednesday. - The patient described the pain as sharp and located in the lower back area. - The pain exacerbated when he was removing shoes and clothing. 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 - Pain is located right flank area, tender to percussion. Proteinuria: - During a DOT physical exam last week, protein was detected in the urine. - The patient was advised to follow up on this finding with PCP Hernia: - Detected during the DOT physical examination. 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 - Recent activity: Took a day off work due to pain - Plans to take the remainder of the week off utilizing sick leave Diagnostic Results: - Recent urine sample showed proteinuria during DOT physical CT 11/2023, showed normal left kidney Problem List - Acute back pain - Proteinuria - Diabetes Mellitus - Hypertension - Hernia Patient Instructions - Take Tylenol for pain instead of Aleve or Naproxen - Muscle relaxer prescribed; to be taken at night Baclofen - Follow-up on laboratory tests as ordered - Drink plenty of water - Rest and take off work until Wednesday f/u with PCP UA : shows no blood, urine cr 134 Medications: New baclofen 10 mg PO BEDTIME 14 tabs 0RF Coding Level of Care Code Est Pt Level 4 (00728) Diagnoses Acute right flank pain R10.9 Type 2 diabetes mellitus with other specified complication, without long-term current use of insulin E11.69 Diabetes mellitus type: type 2 Diabetes mellitus nursing home insulin use: without nursing home use Diabetes mellitus complication status: with other specified complication Primary hypertension I10 Hypertension type: primary hypertension
== END 2025-06-26 11:13 | disposition home or self-care (01) ==
PROVIDERS: PCP Nurse Practitioner Family; Visit Provider Internal Medicine
DX: R10.9 Unspecified abdominal pain (principal); E11.69 Type 2 diabetes mellitus with other specified complication; I10 Essential (primary) hypertension

== ENCOUNTER 2025-07-09 09:03 | Outpatient (AMB) | payer BC, SELFPAY ==
[2025-07-09 09:24] VITALS: BP 140/98; PULSE 80; TEMP 37.1; BMI 46.6
--- NOTE | 2025-07-09 09:24 | A.OFFPC_ITS ---
Vital Signs 07/09/25 09:24 07/09/25 10:12 Height 6 ft Weight 344 lb BMI 46.6 BP 140/98 H 148/100 H Blood Pressure Location Rt brachial Position Sitting Pulse 80 Pulse Source Pulse Oximeter Temp 98.8 F Temp Source Oral Intake Visit Reasons: PE a1c due Recruiter Specialist Required: No Accompanied by: Self / Same As Patient Allergies No Known Allergies (No Known Allergies*) Allergy (Verified 07/09/25 10:36) Medication List - Last Reconciled 07/09/25 by JACQUELINE Hoyt-STEPHANY atorvastatin 20 mg PO BEDTIME baclofen 10 mg PO BEDTIME blood-glucose sensor (Dexcom G7 Sensor device) bid testing blood-glucose,tank car loader,cont (Dexcom G7 Food Service Sales Representatives) bid teting irbesartan 150 mg PO DAILY lancets (Fabuch Delica Plus Lancet) Test blood sugar twice a day semaglutide 2 mg (0.75 mL) subcut QWEEK Tobacco use date assessed: 07/09/25 Dental Screening Dental Screen Date: 01/08/25 HPI PE a1c due HPI Details History of Present Illness The patient is a 45-year-old male presenting with a physical exam and diabetes management. His diabetes is currently managed with Ozempic, and his Hemoglobin A1c is 6.2%, indicating good control. The plan is to increase the Ozempic dosage to 2 mg. labs already resulted The patient is also noted to be morbidly obese, which is a significant concern in the management of his diabetes. He reports intermittent neuropathy in his feet, although sensation is intact upon examination with a monofilament. Preventative care measures include a scheduled colon cancer screening and an upcoming eye exam. HTN: Increasing his ARB and having him take his BP at home Health Maintenance - Scheduled colon cancer screening - Scheduled eye exam Social History Review of Systems - Neurological: Reports intermittent jacquelin ropathy in feet. Denies headaches, dizziness, or balance issues. - Cardiovascular: Denies chest pain or d yspnea. - Gastrointestinal: Denies abdominal jennifer n, blood in stool, constipation, or diarrhea. -: denies any urinary issues -denies any si or hi Physical Exam General: Cooperative, healthy appearing, comfortable, no acute distress and well developed, morbidly obese Orientation: Patient oriented x3 Limitations: No limitations Head: Normal to inspection Ears: Hearing grossly normal bilaterally Nose: Normal external nose present Face and sinus: Normal facial exam Eyes: Appearance normal, both eyes and all related structures Neck: Normal visual inspection and Yes full ROM Respiratory: Normal respiratory effort and able to speak in complete sentences. Clear to auscultation bilaterally Cardiovascular: Regular rate and rhythm. Normal S1 and S2 GI: Normal to inspection. Soft to palpation and nontender : Testicles without masses/lesions and no hernias appreciated Skin: No rashes or lesions noted Neuro: Patient oriented x3 Extremities: Positive sensation to monofilament testing on lower extremities or feet. Feet intact. Results - Labs: Hemoglobin A1c is 6.2%. Plan Patient was informed and verbally consented to the use of an ambient scribe for clinic note documentation during this visit. 1. Type 2 Diabetes Mellitus The patient's diabetes is currently well-managed with Ozempic, with an A1c of 6.2%. The plan is to increase the Ozempic dosage to 2 mg to further optimize glycemic control. 2. Morbid Obesity The patient's morbid obesity is a significant factor in his diabetes management. Weight management strategies should be considered to improve overall health outcomes. 3. Preventative Care The patient is scheduled for a colon cancer screening and an eye exam as part of his preventative care measures. 4. HTN: increasing irbesartan. repeat l abs in near future, will have pt take his BP at home, drop off values 5. uses vape, started nicotine patches, pt educated on use Discussion Notes During the visit, we discussed the management of the patient's diabetes, including the decision to increase the Ozempic dosage to 2 mg to improve glycemic control. We also reviewed the importance of weight management in the context of his morbid obesity and the scheduled preventative care measures, including a colon cancer screening and an eye exam. Patient Instructions - Continue taking Ozempic as prescribed, with the increased dosage of 2 mg. - Attend scheduled colon cancer screenin g and eye exam. - Focus on weight management strategies to support diabetes control. 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 Surgical History S/P left knee surgery S/P eye surgery Family History Father Lung cancer Mother Diabetes Substance use disorder Social History Housing: House Alcohol intake: current Alcohol intake frequency: holidays/special occasions only Patient Tobacco Use Status: Never used Tobacco e-Cigarette/Vaping Use: Currently Using Second Hand Smoke Exposure: No service: No Current occupational status: employed 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 needs: No Hearing needs: No Vision needs: No Questionnaire Thrive Questionnaire Date Thrive assessed: 01/01/25 I am a: Patient What is your living situation today?: I do not have a steady places to live I choose not to answer this question Within the past 12 months, did the food you bought not last and you didn't have the money to get more?: Sometimes True Within the past 12 months, did you worry whether your food would run out before you got money to buy more?: Sometimes True Do you have trouble paying for medicines?: Yes Do you have trouble getting transportation to medical appointments?: Yes Do you have trouble paying your heating and electricity bill?: Yes Do you have trouble taking care of your child, family member or friend?: Yes Do you have trouble with day-to-day activities such as bathing, preparing meals, shopping, managing finances, etc.?: No Are you currently unemployed and looking for a job?: No Are you interested in more education?: No Currently or been in a relationship where the following occur: No concerns reported THRIVE Score: 5 BRODERICK-7 AMB Questionnaire BRODERICK-7 Date BRODERICK - 7 assessed: 01/08/25 Source: Developed by Drs. Jevon Jamison, Sri Guerrier, Eleuterio Sullivan and colleagues, with an educational eleanor from [employer]. Physical exam (Primary Care) Vital Signs: Last Vital Signs Temp 98.8 F 07/09/25 09:24 Pulse 80 07/09/25 09:24 BP 140/98 H 07/09/25 09:24 BMI result Body Mass Index 46.6 Tobacco/Smoking Status: Tobacco use Status Tobacco use date assessed 07/09/25 07/09/25 09:30 Patient Tobacco Use Status Never used Tobacco 07/09/25 09:30 e-Cigarette/Vaping Use Currently Using 07/09/25 09:30 Thrive Assessment: Date of Thrive Assessment Date Thrive assessed 01/01/25 07/09/25 09:30 Currently or been in a relationship where the following occur: No concerns reported Results AMB Hemoglobin A1c AMB Hemoglobin A1c 6.2 % Last Edit by Moises Ray CMA on 07/09/25 10: 01 Results Reviewed Results Reviewed: Laboratory Last Values Hgb A1c (Clinic) 6.2 % (4.0-6.0) H 07/09/25 10:00 Coding Level of Care Code Est Pt Level 4 (38693) Diagnoses Primary hypertension I10 Hypertension type: primary hypertension Type 2 diabetes mellitus with other specified complication, without long-term current use of insulin E11.69 Diabetes mellitus type: type 2 Diabetes mellitus prison insulin use: without director long term care use Diabetes mellitus complication status: with other specified complication Morbidly obese E66.01 Nicotine addiction F17.200 Assessment & Plan Assessment & Plan (1) HTN (hypertension): Code(s): I10 - Essential (primary) hypertension Category: Medical Qualifiers: Hypertension type: primary hypertension Qualified Code(s): I10 - Essential (primary) hypertension (2) Diabetes: Code(s): E11.9 - Type 2 diabetes mellitus without complications Category: Medical Qualifiers: Diabetes mellitus type: type 2 Diabetes mellitus prison insulin use: without prison use Diabetes mellitus complication status: with other specified complication Qualified Code(s): E11.69 - Type 2 diabetes mellitus with other specified complication (3) Morbidly obese: Code(s): E66.01 - Morbid (severe) obesity due to excess calories Category: Medical (4) Nicotine addiction: Code(s): F17.200 - Nicotine dependence, unspecified, uncomplicated Category: Medical Plan . Orders: Orders AMB Hemoglobin A1c Today Z13.9 - Encounter for screening, unspecified Comprehensive Met. Panel Today I10 - Essential (primary) hypertension Medications: New semaglutide 2 mg (0.75 mL) subcut QWEEK 3 mL 2RF semaglutide 2 mg (0.75 mL) subcut QWEEK 3 mL 2RF nicotine 1 patch transdermal Q24H 28 ea 0RF Changed From irbesartan 150 mg PO DAILY 90 tabs 2RF To irbesartan 300 mg PO DAILY 90 tabs 2RF Refilled irbesartan 150 mg PO DAILY 90 tabs 2RF
[2025-07-09 10:12] VITALS: BP 148/100
== END 2025-07-09 10:33 | disposition home or self-care (01) ==
LOC: HO.HMCC 09:04
PROVIDERS: PCP Nurse Practitioner Family; Visit Provider Nurse Practitioner Family
DX: E11.69 Type 2 diabetes mellitus with other specified complication (principal); E66.01 Morbid (severe) obesity due to excess calories; Z68.42 Body mass index [BMI] 45.0-49.9, adult; F17.200 Nicotine dependence, unspecified, uncomplicated; I10 Essential (primary) hypertension

== ENCOUNTER → 2025-07-09 09:03 | Outpatient (BNVA) | payer BC, SELFPAY | PROVIDERS: PCP Nurse Practitioner Family; Visit Provider Nurse Practitioner Family | DX: Z00.00 Encounter for general adult medical examination without abnormal findings (principal); E11.69 Type 2 diabetes mellitus with other specified complication; E66.01 Morbid (severe) obesity due to excess calories; I10 Essential (primary) hypertension; F17.290 Nicotine dependence, other tobacco product, uncomplicated; Z68.42 Body mass index [BMI] 45.0-49.9, adult; Z79.899 Other long term (current) drug therapy | CPT/HCPCS: 83036 ==

== ENCOUNTER 2025-07-16 14:41 | Outpatient (AMB) | payer BC, SELFPAY ==
[2025-07-16 14:52] VITALS: BP 144/79; PULSE 81; BMI 46.0
--- NOTE | 2025-07-16 14:52 | MHC.OFFVIS ---
Vital Signs 07/16/25 14:52 Height 6 ft Weight 339 lb 8.19 oz BMI 46.0 BP 144/79 H Blood Pressure Location Lt brachial Position Sitting Pulse 81 Intake Visit Reasons: Colon Screen / Abdominal Pains Intake Note: Jose presents in the office as a new patient. CC: Was told he may have a hernie and states that it expands and states that it is on the LRQ. Started Ozempic and was constipated for 3 days. He then had a good BM that was followed by diarrhea. He states his bowels have been okay for the past two days. Allergies No Known Allergies (No Known Allergies*) Allergy (Verified 07/16/25 14:53) HPI Comments Details: 45 year old male with PMH of diabetes, HTN presenting to the office for discussion of colon cancer screening. Patient is at average risk of colon cancer due to no family history of colon cancer in first degree relatives. Patient does not have any other gastrointestinal symptoms to include abdominal pain, nausea, vomiting, diarrhea, blood in stool, weight loss. Labs not available to confirm patient does not have anemia. 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 occupational status: employed 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 Will book for elective colonoscopy for screening. Plan: - PEG prep Rxed and instructions reviewed - Follow up PRN if no actionable findings on colo Orders: Referrals GI Procedure Notification Z12.11 - Encounter for screening for malignant neoplasm of colon Medications: New peg 3350-electrolytes [id number] -5.86 gram (Golytely) as per split prep instructions, until fecal effluent is clear 240 mL PO Q10M 4,000 mL 0RF colonoscopy Coding Level of Care Code New Pt Level 3 (86331) Diagnoses Screening for colon cancer Z12.11
== END 2025-07-16 16:09 | disposition home or self-care (01) ==
LOC: HO.HGI 14:42
PROVIDERS: PCP Nurse Practitioner Family; Visit Provider Internal Medicine
DX: Z01.818 Encounter for other preprocedural examination (principal); Z12.11 Encounter for screening for malignant neoplasm of colon
CPT/HCPCS: S0285